=== PATIENT | female | born 1985 | race Caucasian/White ===

== ENCOUNTER → 2017-03-14 | Day surgery (SDC) | payer OTHER ==
[2017-03-09 09:23] VITALS: BMI 47.0
[~2017-03-14] MED LIST: BUPIVACAINE HCL/PF 2.5 MG/ML - 30 ML VIAL IJ ONE; DEXAMETHASONE SOD PHOSPHATE 4 MG/1 ML VIAL ONE; HYDROmorphone HCL CARPU-JECT 2 MG/1 ML DISP.SYRIN ONE; LACTATED RINGERS SOLUTION 1,000 ML IV SCH; LIDOCAINE HCL 1%, 10 MG/ML (20ML VIAL) ONE; METHYLENE BLUE 1% 10 MG/1 ML VIAL ONE; MIDAZOLAM HCL 2 MG/2 ML SINGLE DOSE VIAL ONE; ONDANSETRON 4 MG/2 ML VIAL IVPUSH PRN; ONDANSETRON 4 MG/2 ML VIAL ONE; PROMETHAZINE HCL 25 MG/1 ML VIAL IVPUSH PRN; PROPOFOL 20 ML ONE; SUCCINYLCHOLINE CHLORIDE 200 MG/10 ML VIAL ONE; ceFAZolin SODIUM 1 GM VIAL ONE; oxyCODONE HCL 5 MG TABLET ONE; oxyCODONE HCL 5 MG TABLET PO PRN
[2017-03-14] MEDS: HYDROmorphone HCL CARPU-JECT 1 MG/1 ML DISP.SYRIN IVPUSH PRN ×3 (13:10→13:30)
[2017-03-14 17:39] VITALS: TEMP 98.2
[2017-03-14 17:56] VITALS: BP 147/80; PULSE 95
--- NOTE | 2017-03-14 23:57 | OP ---
DATE OF OPERATION: 03/14/2017 PREOPERATIVE DIAGNOSIS: Abnormal right breast ultrasound, right nipple discharge. POSTOPERATIVE DIAGNOSIS: Abnormal right breast ultrasound, right nipple discharge. PROCEDURE: Right nipple duct exploration and excision of nipple duct, right breast ultrasound guided wire localizing incision. SURGEON: Judy Nesbitt M.D. ANESTHESIA: General. ESTIMATED BLOOD LOSS: Minimal. COMPLICATIONS: None. This is a sterile procedure. INDICATION FOR PROCEDURE: Patient had presented with spontaneous right milky nipple discharge from the 10 o'clock duct. This was found right after patient had excision of the duct. Also noted on ultrasound was a nodule on the 9 o'clock location 4 cm from the nipple, and since I was there to operate on the duct, we decided to go ahead and excise this nodule as well. The procedure was discussed with all the questions answered. PROCEDURE IN DETAIL: Patient was brought to [facility], taken to breast imaging. Ultrasound guided wire localization was performed by the radiologist with a 9 o'clock nodule 4 cm from the nipple. She was then brought into the operating room and after induction of general anesthesia and IV antibiotics, the right breast was prepped and draped in the usual sterile fashion. The duct with the discharge was noted at the 10 o'clock location and I dilated the duct with lacrimal duct probes up to a number 2 dilator. Then 0.1 mL of methylene blue dye was injected into the duct with a 20-gauge Angiocath. A areolar incision was made in the outer part of the right breast and then the blue dye in the duct was followed up to the nipple. This was completely, the nipple duct system that was excised and tagged with a stitch at the nipple edge, nipple end of duct, and this was sent to pathology for permanent resection. Next the focus was made to the wire localization excision. The wire was used as a guide to get down to the area which was excised en bloc and sent as a right breast mass excision 9 o'clock together with the wire intact within this. This was sent to pathology for permanent section. Hemostasis was assured with electrocautery. The parenchyma approximated with interrupted 2-0 Vicryl, skin approximated with interrupted 3-0 Vicryl running 4-0 Prolene and a sterile dressing with Tegaderm, 4x4s applied. She tolerated procedure well, was taken to recovery in good condition. Tori ORTIZ/[id number]
--- NOTE | 2017-03-20 16:13 | PATH ---
Surgical Pathology Report Patient Name: MARCELLA FLORIAN [facility]. Rec. #: [id number] /Age/Gender: 1985 (Age: 31) / F Account: [id number] Location: [facility] AMBULATORY Taken: 03/14/2017 Received: 03/14/2017 Reported: 03/20/2017 Physicians: Judy Nesbitt M.D. Specimen(s) Received A: RIGHT BREAST NIPPLE DUCT EXCISION B: RIGHT BREAST EXCISION OF MASS 9:00 Clinical History Right breast mass Final Diagnosis A. BREAST, RIGHT, NIPPLE DUCT, EXCISION: BENIGN BREAST TISSUE SHOWING ECTATIC DUCTS WITH PERIDUCTAL CHRONIC INFLAMMATION AND FIBROSIS. REMAINING BREAST TISSUE SHOWS PROLIFERATIVE FIBROCYSTIC CHANGES INCLUDING CYSTIC APOCRINE METAPLASIA AND USUAL DUCTAL HYPERPLASIA (UDH). B. BREAST, RIGHT, MASS, 9:00, EXCISION: BENIGN BREAST TISSUE SHOWING FIBROADENOMA. REMAINING BREAST TISSUE SHOWS PROLIFERATIVE FIBROCYSTIC CHANGES INCLUDING CYSTIC APOCRINE METAPLASIA AND USUAL DUCTAL HYPERPLASIA (UDH). Electronically Signed Maryuri Valdes M.D. Gross Description A. Received in formalin labeled "right breast nipple duct excision," is a 6.0 x 2.5 x 2.2 cm irregular portion of fibroadipose tissue with a suture marking the nipple end of the duct, per the surgeon. There is no needle localization wire present. There is no skin present. The nipple end of the duct is inked red and the remainder of the specimen is inked black. The specimen is serially sectioned from nipple end to deep. Sectioning reveals diffuse dilated ducts. No definitive masses are identified. The specimen is entirely and sequentially submitted in 15 cassettes with the nipple end in cassette 1 and the deep in cassette 15. B. Received in formalin labeled "right breast excision of mass at 9:00," is a 4.8 x 3.3 x 2.8 cm irregular, unoriented portion of fibroadipose tissue with a needle localization wire present. There is no skin present. The specimen is inked black and serially sectioned. Sectioning reveals a 0.9 x 0.7 x 0.6 cm firm focus of fibrous tissue abutting the radial margin. The remaining breast parenchyma displays foci of white fibrous tissue. Brim Pouncing Machine Operator sections are submitted in 7 cassettes as follows: 1-2-nodule; 9-4-yfhmdhkgby career representative fibrous tissue. Time to formalin fixation: 1 minute Total formalin fixation time: Approximately 30 hours. 03/15/2017 [facility]03/15/2017
== END | disposition home or self-care (01) ==
LOC: FASU 07:50
PROVIDERS: ATTEND Surgery
PROC: 0HBT0ZX Excision of Right Breast, Open Approach, Diagnostic (ICD-10-PCS; principal; 2017-03-14 12:12)
DX: N64.52 Nipple discharge (principal); R92.8 Other abnormal and inconclusive findings on diagnostic imaging of breast; N60.11 Diffuse cystic mastopathy of right breast; N60.81 Other benign mammary dysplasias of right breast; D24.2 Benign neoplasm of left breast
CPT/HCPCS: 19281; 84703; 88307-TC; 94760

== ENCOUNTER 2017-04-30 18:10 | Emergency (ER) | payer OTHER ==
[2017-04-30 18:32] VITALS: PULSE 97; BMI 47.0
[2017-04-30] MEDS ORDERED: ONDANSETRON 4 MG/2 ML VIAL IVPUSH ONE (18:54)
[2017-04-30] MEDS ORDERED: SODIUM CHLORIDE 0.9% 1000 ML INFUS.BAG IV ONE (18:54)
[2017-04-30] MEDS ORDERED: HEMOQUE TEST 1 EACH EACH ONE (18:59)
--- NOTE | 2017-04-30 19:00 | PDOC ---
Attending Attestation - Resident Resident Name: WestonyoselynAdarsh - ED Attending Attestation I have performed the following: I have examined & evaluated the patient, The case was reviewed & discussed with the resident, I agree w/resident's findings & plan, Exceptions are as noted - HPI HPI: 04/30/17 18:58 Agree with the resident's HPI as documented in the electronic medical record. - Physicial Exam PE: 04/30/17 18:58 Agree with the resident's physical examination as documented in the electronic medical record. - Medical Decision Making 04/30/17 18:58 31-year-old female with history of hypertension, diabetes who presents to the emergency Department with complaints of 4 day history of copious diarrhea and one day history of nausea and vomiting as well as abdominal pain mostly in the right lower quadrant. Differential diagnosis includes but is not limited to: Appendicitis, gastroenteritis, regional enteritis, colitis, diverticulitis/ diverticulosis, partial bowel obstruction, DKA, electrolyte abnormality, dehydration, toxic/metabolic derangement. Plan: 1. Labs 2. IV fluids for hydration 3. Urine analysis and urine 4. Antiemetics 5. Pain management 6. Observe and reevaluate 7. The patient will likely require abdominal imaging to rule out above- mentioned pathology
--- NOTE | 2017-04-30 19:02 | PDOC ---
History of Present Illness - General Chief Complaint: Vomiting/Diarrhea Stated Complaint: VOMITING, DIARRHEA Time Seen by Provider: 04/30/17 18:25 History Source: Patient Exam Limitations: No Limitations - History of Present Illness Initial Comments: 04/30/17 18:56 The patient is a 31F with a PMH of HTN and DM who presents to the Ed with 6 days of diarrhea. The patient has also been experiencing NBNB vomiting x 3 days. The diarrhea is mucous and watery. The vomitus is non bloody and non bilious. The patient states that she cannot keep anything down and is feeling spasms and pain in her abdomen. The patient also reports a fever of 101 yesterday and today. She denies any recent antibiotic use or recent travel. She does not have any sick contacts and no one in her household is experiencing similar symptoms. The patient's last meal was at 2:30pm today and she threw it up. ROS+: nausea, vomiting, diarrhea, fever, chills, headache ROS-: constipation, numbness, tingling, CP, SOB Allergies: ASA, azithro, cipro, diclofenac, fluconazole, guaifenesin Surgeries: breast surgery 1 month ago, cholecystecomy Social: Does not smoke, drink, or use recreational drugs Past History - Past Medical History Allergies/Adverse Reactions: Allergies Allergy/AdvReac Type Severity Reaction Status Date / Time aspirin Allergy Verified 04/30/17 18:13 azithromycin Allergy Rash Verified 04/30/17 18:13 ciprofloxacin [From Cipro] Allergy Vomiting Verified 04/30/17 18:13 diclofenac Allergy Verified 04/30/17 18:13 fluconazole [From Diflucan] Allergy Itching Verified 04/30/17 18:13 guaifenesin Allergy Rash Verified 04/30/17 18:13 Home Medications: Ambulatory Orders Botulinum Toxin A [Botox (Nf)] 100 units IM ASDIR 03/14/17 Medroxyprogesterone Acetate [Depo-Provera] 150 mg IM MONTHLY 03/14/17 Anemia: No Asthma: No Cancer: No Cardiac Disorders: No CVA: No COPD: No CHF: No Dementia: No Diabetes: Yes GI Disorders: No Disorders: No HTN: Yes Hypercholesterolemia: No Liver Disease: No Seizures: No Thyroid Disease: No Other medical history: MIGRAINE HEADACHES - Surgical History Abdominal Surgery: Yes (Exploratory Lap 2003) Appendectomy: No Cardiac Surgery: No Cholecystectomy: Yes Lung Surgery: No Neurologic Surgery: No Orthopedic Surgery: No - Psycho/Social/Smoking Cessation Hx Anxiety: No Suicidal Ideation: No Smoking History: Never smoked Have you smoked in the past 12 months: No Information on smoking cessation initiated: No Hx Alcohol Use: (occasional) Drug/Substance Use Hx: No Substance Use Type: None Hx Substance Use Treatment: No Review of Systems - Review of Systems Able to Perform ROS?: Yes Is the patient limited [place] proficient: No Constitutional: Yes: Chills, Fever Respiratory: No: Shortness of Breath Cardiac (ROS): No: Chest Pain ABD/GI: Yes: Diarrhea, Nausea, Poor Appetite, Vomiting. No: Constipated : No: Burning, Dysuria, Discharge Neurological: Yes: Headache. No: Numbness, Paresthesia, Tingling, Weakness *Physical Exam - Vital Signs Last Vital Signs Temp Pulse Resp BP Pulse Ox 97.9 F 97 H 18 157/105 99 04/30/17 18:10 04/30/17 18:10 04/30/17 18:10 04/30/17 18:10 04/30/17 18:10 - Physical Exam General Appearance: Yes: Nourished, Appropriately Dressed, Mild Distress, Obese HEENT: positive: Normal Voice Respiratory/Chest: positive: Lungs Clear, Normal Breath Sounds. negative: Chest Tender, Respiratory Distress, Accessory Muscle Use Cardiovascular: positive: Regular Rhythm, Regular Rate, S1, S2, Tachycardia ( borderline) Gastrointestinal/Abdominal: positive: Tender (RLQ to deep palpation), Soft. negative: Protuberent, Guarding, Rebound Musculoskeletal: positive: CVA Tenderness (R) Extremity: negative: Coldness, Swelling Integumentary: positive: Dry, Warm. negative: Jaundice Neurologic: positive: Fully Oriented, Alert, Normal Mood/Affect, Normal Response , Motor Strength 5/5 ED Treatment Course - LABORATORY CBC & Chemistry Diagram: 04/30/17 19:00 04/30/17 19:00 Medical Decision Making - Medical Decision Making 04/30/17 19:04 Patient is a 31F with a PMH of DM and HTN who presents to the ED with 6 days of diarrhea and vomiting with RLQ pain. On the differential is appendicitis, colitis, diverticulitis, ectopic , ovarian torsion, renal calculus. I have ordered a CBC, CMP, UA, stool cultures to r/o infectious process. Imaging was discussed with Dr. Mtz and she would like an abdominal CT to rule out intraabdominal pathology. 04/30/17 19:19 The patient was signed out to evening attending pending all labs and imaging ordered. *DC/Admit/Observation/Transfer - Discharge Dispostion Condition at time of disposition: Stable
--- NOTE | 2017-04-30 19:16 | PDOC ---
*Physical Exam - Vital Signs Last Vital Signs Temp Pulse Resp BP Pulse Ox 97.9 F 97 H 18 157/105 99 04/30/17 18:10 04/30/17 18:10 04/30/17 18:10 04/30/17 18:10 04/30/17 18:10 ED Treatment Course - LABORATORY CBC & Chemistry Diagram: 04/30/17 19:00 04/30/17 19:00 Progress Note - Progress Note Progress Note: Care of this patient was transferred to [place] from Dr. Mtz and the resident. Patient is an obese 31-year-old who comes in complaining of multiple episodes of nausea vomiting and diarrhea. On exam patient has right lower quadrant pain. Patient's workup is still pending. Patient has labs pending and a CAT scan pending. Patient was given antiemetics and is being hydrated with IV fluid. Patient's CAT scan was negative for any acute intra-abdominal pathology. Patient did have an incidental finding of a small nodule on her adrenal gland and a fatty liver. Patient's blood work showed a normal white count, normal H&H and normal differential Patient had a mildly elevated glucose of 136 otherwise her chemistries were unremarkable Patient's test was negative and her urinalysis was normal. Patient given copies of her CAT scan and discussed the results with her. Prescriptions were sent to patient's pharmacy for some hyoscyamine as well as an anti-medic Patient was also told to picker tender an antidiarrheal and take as directed on the bottle Patient has a primary care doctor that she can follow-up with Patient discharged home. *DC/Admit/Observation/Transfer Diagnosis at time of Disposition: Nausea, vomiting, and diarrhea, Abdominal pain - Discharge Dispostion Disposition: HOME Condition at time of disposition: Stable - Prescriptions Prescriptions: Hyoscyamine Odt [Levsin Odt -] 0.125 mg PO DAILY #7 tab.rapdis Ondansetron [Zofran Odt -] 4 mg SL BID #14 od.tablet - Patient Instructions Additional Instructions: Take hyoscyamine for abdominal pain one tablet as often as twice a day. For nausea and vomiting take Zofran 1 tablet as often as 3 times a day. Purchase some [id number] Imodium and take as directed on the bottle. Return to the emergency department immediately with ANY new, persistent or worsening symptoms. Continue any medications as previously prescribed by your physician. You should follow up with your primary doctor as soon as possible regarding today's emergency department visit. . Please make sure your doctor reviews the results of your emergency evaluation. Thank you for coming to the Emergency Department today for your care. It was a pleasure to see you today. Please note that your evaluation is INCOMPLETE until you follow-up with your doctor.
[2017-04-30 19:19] LABS: URINE APPEARANCE Clear; URINE BILIRUBIN Negative (NEGATIVE); URINE BLOOD Trace-intact (NEGATIVE); URINE GLUCOSE (UA) Negative (NEGATIVE); URINE KETONE Negative (NEGATIVE); URINE LEUK ESTERASE Negative (NEGATIVE); URINE NITRITE Negative (NEGATIVE); URINE PROTEIN Trace (NEGATIVE); URINE UROBILINOGEN 0.2 E.U/dl (0.2-1.0)
[2017-04-30 19:20] LABS: URINE COLOR YELLOW
[2017-04-30] MEDS ORDERED: ONDANSETRON 4 MG/2 ML VIAL ONE (19:21)
[2017-04-30 19:23] LABS: MCH 31.1 pg (25.7-33.7); MCHC 33.9 g/dl (32.0-36.0); MEAN CELL VOLUME 91.7 fl (80-96); MEAN PLT VOLUME 8.4 fl (7.5-11.1); PLATELET COUNT 243 K/MM3 (134-434); RDW 12.7 % (11.6-15.6); WHITE BLOOD COUNT 9.6 K/mm3 (4.0-10.8)
[2017-04-30 19:26] LABS: STOOL FOR OCCULT BLOOD NEGATIVE (NEGATIVE)
[2017-04-30 19:36] VITALS: TEMP 99
[2017-04-30 19:36] LABS: ALK PHOS 158 U/L (32-92); ANION GAP 5 (8-16); BILIRUBIN,TOTAL 0.8 mg/dl (0.2-1.0); CALCIUM 8.9 mg/dl (8.4-10.2); CO2 26 mmol/L (22-28); CREATININE 0.7 mg/dl (0.6-1.3); GLUCOSE,RANDOM 135 mg/dl (74-106); SGOT/AST 30 U/L (10-42); SGPT/ALT 34 U/L (10-40); TOT PROT 7.4 g/dl (6.4-8.3)
[2017-04-30 19:37] LABS: ACETONE SERUM NEGATIVE (NEGATIVE)
[2017-04-30] MEDS ORDERED: morphine CARPU-JECT 4 MG/1 ML DISP.SYRIN ONE (20:51)
[2017-04-30] MEDS ORDERED: morphine CARPU-JECT 4 MG/1 ML DISP.SYRIN IVPUSH ONE (20:51)
[2017-04-30] MEDS ORDERED: HYOSCYAMINE SULFATE 0.125 MG *ODT PO ONE (21:41)
[2017-04-30] MEDS ORDERED: HYOSCYAMINE SULFATE 0.125 MG *ODT ONE (21:50)
[2017-04-30 22:08] VITALS: BP 152/101
== END 2017-04-30 22:07 | disposition home or self-care (01) ==
LOC: FER 18:10
PROC: 3E033NZ Introduction of Analgesics, Hypnotics, Sedatives into Peripheral Vein, Percutaneous Approach (ICD-10-PCS; principal; 2017-04-30)
PROC: 3E033GC Introduction of Other Therapeutic Substance into Peripheral Vein, Percutaneous Approach (ICD-10-PCS; 2017-04-30)
DX: R10.9 Unspecified abdominal pain (principal); R11.2 Nausea with vomiting, unspecified; R19.7 Diarrhea, unspecified
CPT/HCPCS: 36415; 74177-TC; 80053; 81003; 82009; 82272; 84703; 85027; 96374; 96375; 99282-25

== ENCOUNTER 2017-12-03 10:05 | Emergency (ER) | payer SELFPAY ==
[2017-12-03 10:30] VITALS: TEMP 98.6; BMI 45.4
[2017-12-03 10:51] VITALS: BP 155/105; PULSE 120
[2017-12-03] MEDS ORDERED: ONDANSETRON 4 MG/2 ML VIAL IVPUSH ONE (10:52)
[2017-12-03] MEDS ORDERED: ACETAMINOPHEN 1000 MG/100 ML VIAL (NON FORMULARY) IVPB ONE (10:52)
[2017-12-03] MEDS ORDERED: ALBUTEROL SO4 2.5/IPRATROPIUM 0.5 INH SOL 3 ML VIAL.NEB. NEB ONE ×2 (10:52→10:56)
[2017-12-03] MEDS ORDERED: SODIUM CHLORIDE 0.9% 1000 ML INFUS.BAG IV ONE (10:52)
[2017-12-03] MEDS ORDERED: ONDANSETRON 4 MG/2 ML VIAL ONE (10:56)
[2017-12-03] MEDS ORDERED: ACETAMINOPHEN INJECTION 100 ML IVPB ONE (10:56)
[2017-12-03 11:24] LABS: BASO % 0.2 % (0-2.0); EOS % 1.6 % (0-4.5); HEMATOCRIT 48.7 % (32.4-45.2); LYMPH % 35.5 % (8-40); MCHC 34.9 g/dl (32.0-36.0); MEAN CELL VOLUME 88.6 fl (80-96); MEAN PLT VOLUME 8.3 fl (7.5-11.1); MONO % 10.8 % (3.8-10.2); NEUT % 51.9 % (42.8-82.8); PLATELET COUNT 232 K/MM3 (134-434); RBC 5.49 M/mm3 (3.60-5.2); RDW 12.4 % (11.6-15.6); WHITE BLOOD COUNT 5.4 K/mm3 (4.0-10.8)
[2017-12-03 11:37] LABS: ALBUMIN 3.9 g/dl (3.5-5.0); ALK PHOS 193 U/L (32-92); ANION GAP 12 (8-16); BILIRUBIN,TOTAL 1.7 mg/dl (0.2-1.0); BLOOD UREA NITROGEN 11 mg/dl (7-18); CALCIUM 9.3 mg/dl (8.4-10.2); CHLORIDE 103 mmol/L (98-107); CO2 18 mmol/L (22-28); GLUCOSE,RANDOM 257 mg/dl (74-106); POTASSIUM 3.6 mmol/L (3.5-5.1); SGOT/AST 85 U/L (10-42); SGPT/ALT 52 U/L (10-40); SODIUM 133 mmol/L (136-145); TOT PROT 7.9 g/dl (6.4-8.3)
--- NOTE | 2017-12-03 11:39 | PDOC ---
History of Present Illness - General Chief Complaint: Cold Symptoms Stated Complaint: FLU Time Seen by Provider: 12/03/17 10:47 - History of Present Illness Initial Comments: 12/03/17 15:26 Chief complaint cough difficulty breathing History of present illness: 32 years old no significant past medical history presents to the emergency department with 3-4 day history of runny nose congestion cough chills body aches. Today she developed difficulty breathing coughing wheezing pharyngitis. Has been able to tolerate food of fluids. Symptoms are mild to moderate persistent constant no exacerbating or alleviating factors. Denies pain. Past History - Travel Traveled outside of the country in the last 30 days: No Close contact w/someone who was outside of country & ill: No - Past Medical History Allergies/Adverse Reactions: Allergies Allergy/AdvReac Type Severity Reaction Status Date / Time aspirin Allergy Verified 04/30/17 18:13 azithromycin Allergy Rash Verified 04/30/17 18:13 ciprofloxacin [From Cipro] Allergy Vomiting Verified 04/30/17 18:13 ciprofloxacin HCl Allergy Rash Verified 02/13/17 15:37 [From Cipro] fluconazole [From Diflucan] Allergy Itching Verified 04/30/17 18:13 guaifenesin Allergy Rash Verified 04/30/17 18:13 Home Medications: Ambulatory Orders Botulinum Toxin A [Botox (Nf)] 100 units IM ASDIR 03/14/17 Medroxyprogesterone Acetate [Depo-Provera] 150 mg IM MONTHLY 03/14/17 Hyoscyamine Odt [Levsin Odt -] 0.125 mg PO DAILY #7 tab.rapdis 04/30/17 Ondansetron [Zofran Odt -] 4 mg SL BID #14 od.tablet 04/30/17 Albuterol Sulfate Inhaler - [Ventolin Hfa Inhaler -] 1 - 2 inh PO Q4H #1 inhaler 12/03/17 Ondansetron [Zofran Odt -] 4 mg SL BID #14 od.tablet 12/03/17 COPD: No HTN: Yes - Surgical History Cholecystectomy: Yes - Suicide/Smoking/Psychosocial Hx Smoking History: Never smoked Hx Alcohol Use: No Drug/Substance Use Hx: No Substance Use Type: None Review of Systems - Review of Systems Comments:: 12/03/17 15:27 ROS: A complete review of 10 out of 10 review of systems is taken and is negative apart from what is previously mentioned below and in the HPI. *Physical Exam - Vital Signs Last Vital Signs Temp Pulse Resp BP Pulse Ox 98.6 F 120 H 26 H 155/105 100 12/03/17 10:06 12/03/17 10:50 12/03/17 10:50 12/03/17 10:50 12/03/17 10:50 - Physical Exam Comments: 12/03/17 15:27 Vitals: Triage Vital signs reviewed General Appearance: no acute distress, well nourished well developed, Head: Atraumatic, Eyes: Pupils equal reactive round, extraocular movement intact Ears: TM's normal bilaterally; Nose: Nares patent bilaterally;+ nasal congestion Throat: Posterior oropharynx without erythema, mucous membranes moist, Neck: Supple;No Nucal rigidity Chest Wall: Nontender Cardiac: Regular rate and rhythym, no murmurs, no rubs, no gallops, Lungs: Clear to auscultation bilateral, b/l end expiratory wheezing Abdomen: Soft, non distended, normal bowel sounds, non tender to palpation Extremities: Full range of motion to all extremities, no cyanosis, clubbing, or edema Skin: Warm and dry, no rashes or lesions, no rash, no petechiae Neuro: AOX3; Cranial Nerves 2-12 grossly intact, Strength intact to all extremities, Sensation intact to all extremities,gait normal Psych: normal mood, normal affect ED Treatment Course - LABORATORY CBC & Chemistry Diagram: 12/03/17 11:05 12/03/17 11:05 - Medications Given in the ED: ED Medications Discontinued Medications Generic Name Dose Route Start Last Admin Trade Name Km PRN Reason Stop Dose Admin Acetaminophen 1,000 mg 12/03/17 10:52 12/03/17 11:19 Ofirmev Injection - IVPB 12/03/17 10:53 1,000 mg ONCE ONE Administration Albuterol/Ipratropium 3 amp 12/03/17 10:52 12/03/17 11:00 Duoneb - NEB 12/03/17 10:53 3 amp ONCE ONE Administration Ondansetron HCl 4 mg 12/03/17 10:52 12/03/17 11:05 Zofran Injection IVPUSH 12/03/17 10:53 4 mg ONCE ONE Administration Sodium Chloride 2,000 ml 12/03/17 10:52 12/03/17 11:05 Normal Saline - IV 12/03/17 10:53 2,000 ml ONCE ONE Administration Medical Decision Making - Medical Decision Making 12/03/17 15:28 History and examination consistent with influenza-like illness. Patient with wheezing on examination. We'll check labs treat with IV fluids Zofran given some nausea 3 DuoNeb's and reassess Reevaluation: Patient feels much better no difficulty breathing wheezing has improved. History and examination consistent with influenza-like illness. On patient's blood work her liver function tests were slightly elevated. I discussed this with the patient at this time given no abdominal pain and otherwise a history and examination that is consistent with flulike illness I believe these elevations to be viral and transient. I provided the patient with outpatient clinic follow-up as well as to primary care doctors that she can follow up with. She was instructed to return to the emergency department immediately for any abdominal pain severe worsening symptoms or for any concerns. Otherwise she will be discharged with a prescription for a MDI, Zofran and strict return instructions Findings, the need for follow-up, strict return instructions discussed with patient. *DC/Admit/Observation/Transfer Diagnosis at time of Disposition: Influenza - Discharge Dispostion Condition at time of disposition: Good Admit: No - Prescriptions Prescriptions: Albuterol Sulfate Inhaler - [Ventolin Hfa Inhaler -] 1 - 2 inh PO Q4H #1 inhaler Ondansetron [Zofran Odt -] 4 mg SL BID #14 od.tablet - Referrals Referrals: Derek Farris MD [Staff Physician] - Lion Mora MD [Staff Physician] - Logan Galloway MD [Staff Physician] - - Patient Instructions Printed Discharge Instructions: Influenza Additional Instructions: Ventolin MDI as prescribed 2 puffs every 4 hours for the next 3 days. Drink plenty fluids. [id number] Motrin as directed on package as needed for fever or body aches. Zofran as prescribed for nausea. Follow-up within 1 week at the residence clinic with Dr. SWANN, or you can follow-up with or Dr. Mora this week to have you liver function tests rechecked. Return to the emergency department immediately if you feel you are getting sick or difficulty breathing difficulty swallowing or for any concerns. - Post Discharge Activity Forms/Work/School Notes: Back to Work
== END 2017-12-03 15:41 | disposition home or self-care (01) ==
LOC: FER 10:05 → MERGE 10:05 → FER 15:41
PROC: 3E0337Z Introduction of Electrolytic and Water Balance Substance into Peripheral Vein, Percutaneous Approach (ICD-10-PCS; principal; 2017-12-03)
PROC: 3E033NZ Introduction of Analgesics, Hypnotics, Sedatives into Peripheral Vein, Percutaneous Approach (ICD-10-PCS; 2017-12-03)
PROC: 3E033GC Introduction of Other Therapeutic Substance into Peripheral Vein, Percutaneous Approach (ICD-10-PCS; 2017-12-03)
DX: J11.1 Influenza due to unidentified influenza virus with other respiratory manifestations (principal)
CPT/HCPCS: 36415; 71045-TC-FY; 80053; 84703; 85025; 99282-25

== ENCOUNTER 2018-02-11 09:48 | Emergency (ER) | payer OTHER ==
--- NOTE | 2018-02-11 09:53 | PDOC ---
History of Present Illness - General Chief Complaint: Injury Stated Complaint: LEFT 1ST TOE PAIN Time Seen by Provider: 02/11/18 09:51 - History of Present Illness Initial Comments: 02/11/18 10:01 32yo female with no significant pmhx (htn and dm - resolved) presents for eval of L foot pain. States she was "messing around" with her signif other on sunday night. States she was trying to kick him and hit her L big toe and heard a crack. States she has had a lot of pain across the top of her foot from the tip of her L big toe to her ankle. States anterior chow pain from holding the toes up when she walks. Pain with walking. Last ibuprofen use was last night at 11p. On depo provera shot, but last shot was in the summer of last year. Had a test a month ago (which was negative). Denies ankle injury. Denies knee injury. Denies any other injury. C/o pain to L big toe with bruising to the L toe. PMHx: htn, dm - resolved PSHx: benedict, breast lumpectomy x 2, tonsillectomy Allergies: asa, azithro, cipro, fluconazole, guifenesin Past History - Past Medical History Allergies/Adverse Reactions: Allergies Allergy/AdvReac Type Severity Reaction Status Date / Time aspirin Allergy Verified 04/30/17 18:13 azithromycin Allergy Rash Verified 04/30/17 18:13 ciprofloxacin [From Cipro] Allergy Vomiting Verified 04/30/17 18:13 ciprofloxacin HCl Allergy Rash Verified 02/13/17 15:37 [From Cipro] fluconazole [From Diflucan] Allergy Itching Verified 04/30/17 18:13 guaifenesin Allergy Rash Verified 04/30/17 18:13 Home Medications: Ambulatory Orders Botulinum Toxin A [Botox (Nf)] 100 units IM ASDIR 03/14/17 Medroxyprogesterone Acetate [Depo-Provera] 150 mg IM MONTHLY 03/14/17 Acetaminophen W/ Codeine #3 [Tylenol # 3 -] 1 tab PO Q6H #16 tablet MDD 4 tabs a day 02/11/18 Anemia: No Asthma: No Cancer: No Cardiac Disorders: No CVA: No COPD: No CHF: No Dementia: No Diabetes: No GI Disorders: No Disorders: No HTN: Yes Hypercholesterolemia: No Liver Disease: No Seizures: No Thyroid Disease: No - Surgical History Abdominal Surgery: Yes (RLQ laproscopic exploratory) Appendectomy: No Cardiac Surgery: No Cholecystectomy: Yes Lung Surgery: No Neurologic Surgery: No Orthopedic Surgery: No - Suicide/Smoking/Psychosocial Hx Smoking Status: No Smoking History: Never smoked Have you smoked in the past 12 months: No Number of Cigarettes Smoked Daily: 0 Hx Alcohol Use: No Drug/Substance Use Hx: No Substance Use Type: None Hx Substance Use Treatment: No Review of Systems - Review of Systems Able to Perform ROS?: Yes Is the patient limited Ugandan proficient: No Constitutional: No: Chills, Fever HEENTM: No: Nose Pain, Throat Pain Respiratory: No: Cough, Shortness of Breath Cardiac (ROS): No: Chest Pain, Edema, Irregular Heart Rate ABD/GI: No: Diarrhea, Nausea, Vomiting, Abdominal cramping : No: Burning Musculoskeletal: Yes: Joint Pain, Muscle Pain. No: Back Pain Integumentary: Yes: Bruising. No: Rash Neurological: No: Headache, Numbness, Paresthesia, Tingling, Ataxia, Dizziness All Other Systems: Reviewed and Negative *Physical Exam - Vital Signs 02/11/18 10:07 Selected Entries 02/11/18 09:49 Temperature 97.8 F Pulse Rate 90 Respiratory 16 Rate Blood Pressure 150/95 Blood Pressure 113 Mean O2 Sat by Pulse 99 Oximetry (%) Weight 131.5 kg - Physical Exam General Appearance: Yes: Nourished, Appropriately Dressed, Other (appears uncomfortable) HEENT: positive: EOMI, Normal Voice Neck: positive: Trachea midline Respiratory/Chest: positive: Lungs Clear, Normal Breath Sounds. negative: Respiratory Distress Cardiovascular: positive: Regular Rhythm, Regular Rate, S1, S2 Gastrointestinal/Abdominal: positive: Normal Bowel Sounds, Other (obese). negative: Guarding, Rebound Musculoskeletal: positive: Normal Inspection Extremity: positive: Normal Capillary Refill, Inflammation, Other (L great toe swelling, ecchymosis, ttp. ttp over 1st metatarsal and medial malleolus, limited ROM of toes secondary to pain). negative: Calf Tenderness Integumentary: positive: Dry, Warm, Ecchymosis (L big toe) Neurologic: positive: interpretive program coordinator II-XII NML intact, Fully Oriented, Alert, Normal Response, Motor Strength 5/5 Procedures - Splinting Splint Location: Left: Foot (tee tape to toe) Pre-Proc Neuro Vasc Exam: normal Hand-Made Type: tee tape to toe Post-Proc Neuro Vasc Exam: normal Progress: 02/11/18 11:25 pt tolerated the procedure well Medical Decision Making - Medical Decision Making 02/11/18 10:09 a/p: 32yo female with L foot trauma - suspect great phalange vs metatarsal fx -will obtain xrays of foot and ankle given pain to medial malleolus, however, low suspicion for ankle fracture given the mechanism of injury and that the patient has been ambulating on the foot x 2 days -motrin -hcg -will monitor and reassess -suspect patient will need tee tape and a hard sole shoe for a toe fracture. pain control, ice, elevate, ortho follow up 02/11/18 11:20 xray reviewed suspect fracture to prox phalange of first toe will tee tape, pain control, ortho follow up, hard sole shoe, crutches stable for d/c to home discussed follow up with PMD and ortho. answered all questions and all reasons to return to the ED *DC/Admit/Observation/Transfer Diagnosis at time of Disposition: Broken toe - Discharge Dispostion Disposition: HOME Condition at time of disposition: Stable Admit: No - Prescriptions Prescriptions: Acetaminophen W/ Codeine #3 [Tylenol # 3 -] 1 tab PO Q6H #16 tablet MDD 4 tabs a day - Referrals Referrals: Slade Swan MD [Staff Physician] - - Patient Instructions Printed Discharge Instructions: DI for Toe Fracture, How to Use Crutches Additional Instructions: Please take all medications as prescribed. Please do not drive or operate heavy machinery while taking Tylenol #3. Please make an appointment to see the orthopedist. Please wear the hard sole shoe whenever you are walking. - Post Discharge Activity - Attestations Physician Attestion: 02/11/18 11:25 I, Dr. Cecilia Hill, DO, attest that this document has been prepared under my direction and personally reviewed by me in its entirety. I further attest, that it accurately reflects all work, treatment, procedures and medical decision -making performed by me.
[2018-02-11] MEDS ORDERED: IBUPROFEN 600 MG TABLET (FP) PO ONE ×2 (10:00→10:35)
[2018-02-11 10:04] VITALS: BP 150/95; PULSE 90; TEMP 97.8; BMI 45.3
[2018-02-11] MEDS ORDERED: ACETAMINOPHEN WITH CODEINE 300MG/30MG TABLET PO ONE (11:00)
[2018-02-11] MEDS ORDERED: ACETAMINOPHEN WITH CODEINE 300MG/30MG TABLET ONE (11:15)
== END 2018-02-11 11:32 | disposition home or self-care (01) ==
LOC: FER 09:48
PROC: 2W3VXYZ Immobilization of Left Toe using Other Device (ICD-10-PCS; principal; 2018-02-11)
DX: S92.415A Nondisplaced fracture of proximal phalanx of left great toe, initial encounter for closed fracture (principal); W51.XXXA Accidental striking against or bumped into by another person, initial encounter; Y93.89 Activity, other specified; Y92.9 Unspecified place or not applicable; I10 Essential (primary) hypertension
CPT/HCPCS: 73610-TC-LT-FY; 73630-TC-LT; 84703; 99282-25

== ENCOUNTER 2018-07-04 16:18 | Emergency (ER) | payer OTHER ==
[2018-07-04] MEDS ORDERED: methylPREDNISolone NA SUCC 125 MG/2 ML VIAL IVPB ONE (16:24)
[2018-07-04] MEDS ORDERED: SODIUM CHLORIDE 0.9% 500 ML INFUS.BAG IV ONE (16:26)
[2018-07-04] MEDS ORDERED: methylPREDNISolone NA SUCC 125 MG/2 ML VIAL ONE (16:26)
[2018-07-04 16:30] VITALS: BMI 45.4
--- NOTE | 2018-07-04 16:30 | PDOC ---
History of Present Illness - General Chief Complaint: Allergic Reaction Stated Complaint: ALLERGIC REACTION Time Seen by Provider: 07/04/18 16:19 History Source: Patient Exam Limitations: No Limitations - History of Present Illness Initial Comments: 07/04/18 16:27 This is a 33 YOF with h/o multiple food and medication allergies who p/w throat itching/closing sensation, diffuse bodily itching/flushing, hot/cold sensations to her skin, nausea, vomiting x2, and diarrhea all starting at about 2 pm. She ate [employer] food (hot and sour soup and scallops) at 1:30 pm, but she has eaten these dishes at this restaurant before and it never caused her troubles. She denies f/c, headache, SOB, wheezing, chest pain, lightheadedness, dizziness, vision changes, respiratory distress, or other symptoms. She took two Benadryl at 2:03 pm after the onset of symptoms but has not gotten relief. Past History - Past Medical History Allergies/Adverse Reactions: Allergies Allergy/AdvReac Type Severity Reaction Status Date / Time aspirin Allergy Verified 07/04/18 16:19 azithromycin Allergy Rash Verified 07/04/18 16:19 ciprofloxacin [From Cipro] Allergy Vomiting Verified 07/04/18 16:19 ciprofloxacin HCl Allergy Rash Verified 07/04/18 16:19 [From Cipro] codeine [From Guaifen-C] Allergy Verified 07/04/18 16:19 fluconazole [From Diflucan] Allergy Itching Verified 07/04/18 16:19 guaifenesin Allergy Rash Verified 07/04/18 16:19 pesticide Allergy Verified 07/04/18 16:19 Home Medications: Ambulatory Orders Medroxyprogesterone Acetate [Depo-Provera] 150 mg IM MONTHLY 03/14/17 Epinephrine [Epipen 2-Willam] 0.3 mg IJ ASDIR #1 kit 07/04/18 Prednisone [Deltasone] 60 mg PO DAILY #4 tablet 07/04/18 Anemia: No Asthma: No Cancer: No Cardiac Disorders: No CVA: No COPD: No CHF: No Dementia: No Diabetes: No GI Disorders: No Disorders: No HTN: Yes Hypercholesterolemia: No Liver Disease: No Seizures: No Thyroid Disease: No - Surgical History Abdominal Surgery: Yes (RLQ laproscopic exploratory) Appendectomy: No Cardiac Surgery: No Cholecystectomy: Yes Lung Surgery: No Neurologic Surgery: No Orthopedic Surgery: No - Suicide/Smoking/Psychosocial Hx Smoking Status: No Smoking History: Never smoked Have you smoked in the past 12 months: No Number of Cigarettes Smoked Daily: 0 Hx Alcohol Use: No Drug/Substance Use Hx: No Substance Use Type: None Hx Substance Use Treatment: No Review of Systems - Review of Systems Able to Perform ROS?: Yes Constitutional: No: Chills, Fever, Unexplained wgt Loss HEENTM: Yes: Other (throat itching, throat closing sensation, hoarse voice). No : Nose Congestion Respiratory: No: Cough, Shortness of Breath, Wheezing Cardiac (ROS): No: Chest Pain, Palpitations ABD/GI: Yes: Diarrhea, Nausea, Vomiting. No: Constipated : No: Burning, Dysuria Musculoskeletal: No: Back Pain, Neck Pain Integumentary: Yes: Pruritus, Rash. No: Bruising Neurological: No: Headache, Numbness, Tingling, Weakness, Dizziness Endocrine: No: Unexplained Weight Gain, Unexplained Weight Loss *Physical Exam - Physical Exam General Appearance: Yes: Nourished, Appropriately Dressed, Obese, Other (hoarse voice but able to converse, appears slightly uncomfortable but no distress) HEENT: positive: EOMI, GREGORY, Pharynx Normal (no posterior pharyngeal or lingual edema), Muffled/Hoarse voice (slight), Hearing Grossly Normal. negative: Scleral Icterus (R), Scleral Icterus (L), Nasal Congestion Neck: positive: Trachea midline, Supple. negative: Tender, Rigid Respiratory/Chest: positive: Lungs Clear, Normal Breath Sounds. negative: Respiratory Distress, Crackles, Rhonchi, Stridor, Wheezing Cardiovascular: positive: Regular Rhythm, Regular Rate, S1, S2. negative: Edema , JVD, Murmur Gastrointestinal/Abdominal: positive: Normal Bowel Sounds, Soft. negative: Tender, Organomegaly, Pulsatile Mass, Guarding Musculoskeletal: positive: Normal Inspection. negative: Decreased Range of Motion, Vertebral Tenderness Extremity: positive: Normal Capillary Refill, Normal Inspection, Normal Range of Motion. negative: Tender, Cyanosis Integumentary: positive: Normal Color, Dry, Warm, Rash (mild lateral BUE with L> R mild urticaria with mild new excoriation presumably from scratching). negative: Erythema, Bruising Neurologic: positive: clearing hand II-XII NML intact (grossly), Fully Oriented, Alert, Normal Mood/Affect, Normal Response, Motor Strength 5/5, Other (gait is normal) . negative: Facial Droop, Numbness, Sensory Deficit, Confused, Disoriented Medical Decision Making - Medical Decision Making 07/04/18 16:25 Pt p/w apparent allergic reaction. Initial Vital Signs Temp Pulse Resp BP Pulse Ox 98.6 F 93 H 17 190/125 100 07/04/18 16:18 07/04/18 16:18 07/04/18 16:18 07/04/18 16:18 07/04/18 16:18 Exam: As noted in Physical Exam section. DDX IBNLT: allergic rxn/angioedema, anaphylaxis, contact dermatitis, STATE PATROL OFFICER, RPA, laryngitis, tracheitis, tonsillitis esophagitis, GERD, dysphagia, ACS, tracheal/ esophageal trauma, etc. W/U ordered: None TX ordered: IVF, Pepcid, Benadryl, Solu-Medrol Reassessment: Improved, no throat itching or throat/tongue swelling. States still mild bodily itching which she has had before with allergic reactions. States she is comfortable managing this at home. Vital Signs Temperature 98.4 F 07/04/18 17:15 Pulse Rate 88 07/04/18 18:25 Respiratory Rate 18 07/04/18 17:15 Blood Pressure 170/117 07/04/18 18:25 O2 Sat by Pulse Oximetry (%) 100 07/04/18 17:15 BP is acknowledged at 170/117. The patient notes this is not abnormal for her. She is counseled that she needs to continue her regular BP meds as prescribed. Also counseled she needs to follow up with PCP regarding this as well as allergic reactions. She has no OSORIO, chest pain, SOB, palpitataions, or other symptoms of HTNive secondary pathology. DISCHARGE The Pt has gotten significant relief of symptoms with ED medications. Workup is not concerning for emergency-level pathology at this time. The Pt is appropriate for discharge with close outpatient follow up. They are comfortable with this plan and will follow up with their primary care provider in 1-3 days. E-Rx sent to patient's pharmacy for EpiPen and Prednisone short course. The patient is instructed to also take Benadryl prn for any mild recurrence of symptoms. Specific return precautions are discussed and they will come back to the ER if necessary. *DC/Admit/Observation/Transfer Diagnosis at time of Disposition: Allergic reaction Qualifiers: Encounter type: initial encounter Qualified Code(s): T78.40XA - Allergy, unspecified, initial encounter - Discharge Dispostion Disposition: HOME Condition at time of disposition: Stable Decision to Admit order: No - Prescriptions Prescriptions: Epinephrine [Epipen 2-Willam] 0.3 mg IJ ASDIR #1 kit Prednisone [Deltasone] 60 mg PO DAILY #4 tablet - Referrals Referrals: [facility] [Provider Group] Sanchez Santos MD [Staff Physician] - - Patient Instructions Printed Discharge Instructions: DI for General Allergic Reactions Additional Instructions: You were seen in the ER for an allergic reaction. We did an exam and gave you IV medications to control your symptoms, which improved while you were here in the ER. After our assessment, we do not believe you are having a medical emergency at this time, and we believe you are safe to go home. 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 This includes an EpiPen, which you should take only if you get throat closing sensation, difficulty breathing, lip swelling, vomiting, or other signs of severe allergic reaction. Please also take your steroid medication as prescribed , and take Benadryl 25 to 50 mg, every 4-6 hours, if you have symptoms. Occasionally allergic reactions can worsen at about the 6 hour maribell after exposure to the allergen, so please watch out for this and return to the ED if needed. Please follow up with your primary care provider in 1-3 days. We are giving you referral information for our primary care clinic. Call their clinic, tell them you were seen in the ER, and tell them you need a follow-up. If you have any new or worsening symptoms, especially increasing rash, throat closing, wheezing, vomiting, or other symptoms, please come back to the ER at any time ( 24 hours a day). If you are having severe or life threatening symptoms, or symptoms that make it unsafe to drive or have someone drive you, please call 911. - Post Discharge Activity Forms/Work/School Notes: Back to Work
--- NOTE | 2018-07-04 16:33 | PDOC ---
Attending Attestation - Resident Resident Name: Sharon Jolly - ED Attending Attestation I have performed the following: I have examined & evaluated the patient, The case was reviewed & discussed with the resident, I agree w/resident's findings & plan, Exceptions are as noted - HPI HPI: 07/04/18 16:28 33 year old obese F c/ no pmh (with multiple drug allergies) p/w allergic reaction. Approx 3 hours ago, pt was eating hot and sour soup at [employer]. Subsequently developed some mild nausea, flushing of skin, throat itchy sensation, and diffuse itchiness. Denies chest pain, SOB, or lightheadedness. Pt took two tablets of benadryl and came into the ER. - Physicial Exam PE: 07/04/18 16:33 GENERAL: Awake, alert, and fully oriented, in no acute distress HEAD: No signs of trauma EYES: EOMI, sclera anicteric, conjunctiva clear ENT: Auricles normal inspection, hearing grossly normal, nares patent, oropharynx clear without exudates. Moist mucosa. No evidence of airway obstruction. NECK: Normal ROM, supple, LUNGS: Breath sounds equal, clear to auscultation bilaterally. No wheezes, and no crackles EXTREMITIES: Normal range of motion, no edema. No clubbing or cyanosis. No cords, erythema, or tenderness NEUROLOGICAL: Cranial nerves II through XII grossly intact. Normal speech, normal gait SKIN: Warm, Dry, normal turgor, no rashes or lesions noted. - Medical Decision Making 07/04/18 16:34 Vital Signs Temp Pulse Resp BP Pulse Ox 98.6 F 93 H 17 190/125 100 07/04/18 16:18 07/04/18 16:18 07/04/18 16:18 07/04/18 16:18 07/04/18 16:18 Allergic reaction to hot and sour soup. IV benadryl, IV pepcid, IV solumedrol, and IV fluids. Observe. After several hours of observation and pt's symptoms resolve, pt can go home with prednisone and benadryl. Will prescribe epipen for emergencies. 07/04/18 18:16 Pt reports feeling much better after observing for two hours. Return precautions given including reoccurence of allergic reaction.
[2018-07-04] MEDS ORDERED: FAMOTIDINE 20 MG/50 ML IVPB 20 MG/50 ML MG IVPB ONE (16:45)
[2018-07-04 17:16] VITALS: TEMP 98.4
[2018-07-04 18:25] VITALS: BP 170/117; PULSE 88
== END 2018-07-04 18:30 | disposition home or self-care (01) ==
LOC: FER 16:18
PROC: 3E0337Z Introduction of Electrolytic and Water Balance Substance into Peripheral Vein, Percutaneous Approach (ICD-10-PCS; principal; 2018-07-04)
PROC: 3E033GC Introduction of Other Therapeutic Substance into Peripheral Vein, Percutaneous Approach (ICD-10-PCS; 2018-07-04)
DX: T78.40XA Allergy, unspecified, initial encounter (principal); I10 Essential (primary) hypertension
CPT/HCPCS: 99282-25

== ENCOUNTER 2018-07-10 19:20 | Emergency (ER) | payer OTHER ==
[2018-07-10 19:42] VITALS: BP 174/99; PULSE 104; TEMP 97; BMI 44.6
--- NOTE | 2018-07-10 19:46 | PDOC ---
Rapid Medical Evaluation Time Seen by Provider: 07/10/18 19:38 Medical Evaluation: Allergies Allergy/AdvReac Type Severity Reaction Status Date / Time aspirin Allergy Verified 07/04/18 16:19 azithromycin Allergy Rash Verified 07/04/18 16:19 ciprofloxacin [From Cipro] Allergy Vomiting Verified 07/04/18 16:19 ciprofloxacin HCl Allergy Rash Verified 07/04/18 16:19 [From Cipro] codeine [From Guaifen-C] Allergy Verified 07/04/18 16:19 fluconazole [From Diflucan] Allergy Itching Verified 07/04/18 16:19 guaifenesin Allergy Rash Verified 07/04/18 16:19 pesticide Allergy Verified 07/04/18 16:19 07/10/18 19:41 I have performed a brief in-person evaluation of this patient. The patient presents with a chief complaint of: Generalized itching that started shortly after having food allergy testing done today (has allergy results on her person). No sob, throat closing sensation or voice changes. Multiple medication and environmental allergies Pertinent physical exam findings: Stable but prema uncomfortable, no rash observed I have ordered the following:nothing The patient will proceed to the ED for further evaluation. Discharge Disposition - Diagnosis Generalized pruritus - Referrals - Patient Instructions - Post Discharge Activity
[2018-07-10] MEDS ORDERED: diphenhydrAMINE HCL 25 MG CAPSULE (FP) PO ONE ×2 (19:48→19:50)
== END 2018-07-10 22:10 | disposition left against medical advice (07) ==
LOC: JERFT 19:20 → JER 19:20 → JERFT 22:10
DX: T78.1XXA Other adverse food reactions, not elsewhere classified, initial encounter (principal); L29.8 Other pruritus
CPT/HCPCS: 99281-25

== ENCOUNTER 2018-10-11 09:59 | Day surgery (SDC) | payer OTHER ==
[2018-10-10 09:21] VITALS: BMI 43.0
[2018-10-11] MEDS ORDERED: ONDANSETRON 4 MG/2 ML VIAL IVPUSH PRN (13:53)
[2018-10-11] MEDS ORDERED: PROMETHAZINE HCL 25 MG/1 ML VIAL IVPB PRN (13:53)
[2018-10-11] MEDS ORDERED: LIDOCAINE HCL 1%, 10 MG/ML (20ML VIAL) ONE (13:57)
[2018-10-11] MEDS ORDERED: LACTATED RINGERS SOLUTION 1,000 ML IV SCH (14:00)
[2018-10-11] MEDS ORDERED: PROPOFOL 20 ML ONE ×2 (14:12→14:38)
[2018-10-11] MEDS ORDERED: MIDAZOLAM HCL 2 MG/2 ML SINGLE DOSE VIAL ONE (14:12)
[2018-10-11] MEDS ORDERED: SODIUM CHLORIDE 0.9% P/F 10 ML VIAL IJ ONE (14:13)
[2018-10-11] MEDS ORDERED: ceFAZolin SODIUM 1 GM VIAL ONE (14:13)
[2018-10-11] MEDS ORDERED: LIDOCAINE HCL/PF 2% SDV 5ML VIAL ONE (14:13)
[2018-10-11] MEDS ORDERED: ceFAZolin SODIUM 1 GM VIAL IVPB ONE (14:28)
[2018-10-11] MEDS ORDERED: LIDOCAINE HCL 1%, 10 MG/ML (20ML VIAL) NR ONE (14:36)
[2018-10-11] MEDS ORDERED: KETOROLAC TROMETHAMINE 30 MG/1 ML VIAL ONE (15:20)
[2018-10-11] MEDS ORDERED: oxyCODONE HCL 5 MG TABLET ONE (16:32)
[2018-10-11] MEDS ORDERED: oxyCODONE HCL 5 MG TABLET PO PRN ×2 (16:36)
[2018-10-11 17:55] VITALS: BP 132/65; PULSE 90; TEMP 98.3
--- NOTE | 2018-10-11 19:33 | OP ---
DATE OF OPERATION: 10/11/2018 PREOPERATIVE DIAGNOSIS: Left breast fibroadenoma. POSTOPERATIVE DIAGNOSIS: Left breast fibroadenoma. PROCEDURE: Left breast wide localized excision. SURGEON: Judy Lynne M.D. ANESTHESIA: Local IV sedation. ESTIMATED BLOOD LOSS: Minimal. COMPLICATIONS: None. This was a sterile procedure. INDICATION FOR PROCEDURE: The patient presented for screening mammogram and ultrasound, noted a density in the left breast 4 o'clock location. She underwent a needle biopsy radiology and the pathology showed fibroadenoma. She persistently has tenderness right at that spot, and we discussed removed the fibroadenoma to see if that would help her. We discussed the pros and cons of both, and she understood. As the procedure of left breast wide localized excisional biopsy of the mass was discussed, and all the questions answered. PROCEDURE IN DETAIL: The patient was brought to [facility] in [place], was taken into breast imaging, where localized the mass in the lower outer left breast. She was then brought up to the operating room, and after IV sedation and IV antibiotics, the left breast was prepped and draped in usual sterile fashion. The area in the lower outer left breast was anesthetized with 1% lidocaine. A radial incision was made in the left 4 to 5 o'clock location. The wire was used as a guide to get down to the wire, this was incised en bloc, and I could see the mass within this excisional biopsy. This was sent for specimen radiograph. Hemostasis assured with electrocautery. The specimen radiograph showed the mass and wire to be intact within the specimen. This was then sent to pathology for permanent section. Once hemostasis was assured, the fascia was approximated with interrupted 2-0 Vicryl, skin approximated with interrupted 0 Vicryl running 4-0 Biosyn. A sterile dressing of Tegaderm, 4x4s applied. She tolerated procedure well, was taken to recovery in good condition. JUDY LYNNE M.D. [id number]
--- NOTE | 2018-10-16 09:51 | PATH ---
Surgical Pathology Report Patient Name: MARCELLA VARGAS [facility]. Rec. #: [id number] /Age/Gender: 1985 (Age: 33) / F Account: [id number] Location: AMBULATORY SURG Taken: 10/11/2018 Received: 10/11/2018 Reported: 10/16/2018 Physicians: Judy Nesbitt M.D. Specimen(s) Received BREAST MASS Clinical History Left breast fibroadenoma Final Diagnosis LEFT BREAST, EXCISION OF MASS: BREAST TISSUE WITH FIBROADENOMA. ADJACENT BREAST TISSUE SHOWING BENIGN FIBROCYSTIC CHANGES WITH MICROCYST, APOCRINE METAPLASIA, AND STROMAL FIBROSIS. Electronically Signed Nicolasa De Souza M.D. Gross Description Received fresh on an [employer], labeled "left breast excision of mass," is a 5.4 x 4.0 x 1.4 cm. wesley-yellow, irregular, portion of fibroadipose tissue with a needle localization wire present. The specimen is unoriented. There is no skin or nipple present. The specimen is inked blue and serially sectioned. Sectioning reveals a 1.3 x 0.8 x 0.8 cm wesley, rubbery mass abutting the radial margin. The remaining breast parenchyma displays foci of fibrous tissue. Network Firewall Engineer sections are submitted in 4 cassettes as follows: [id number] submitted mass; [id number] motor vehicle field representative tissue. Total formalin fixation time: Approximately 6 hours 10/11/201810/11/2018
== END 2018-10-11 17:45 | disposition home or self-care (01) ==
LOC: JASUSAT 09:59 → EDSTATUS 11:30 → JASUSAT 17:45
PROVIDERS: ATTEND Surgery
PROC: 0HBU0ZX Excision of Left Breast, Open Approach, Diagnostic (ICD-10-PCS; principal; 2018-10-11 13:00)
DX: D24.2 Benign neoplasm of left breast (principal)
CPT/HCPCS: 19281; 84703; 88307-TC; 94760

== ENCOUNTER 2018-12-23 11:19 | Observation (INO) | payer OTHER ==
[2018-12-23] MEDS ORDERED: KETOROLAC TROMETHAMINE 60 MG/2 ML VIAL IM ONE ×2 (11:32→11:39)
[2018-12-23] MEDS ORDERED: diazePAM 2 MG TABLET PO ONE (11:32)
[2018-12-23] MEDS ORDERED: ACETAMINOPHEN 1000 MG/100 ML VIAL (NON FORMULARY) IVPB ONE (11:39)
[2018-12-23] MEDS ORDERED: diazePAM 5 MG TABLET PO ONE (11:39)
--- NOTE | 2018-12-23 11:43 | PDOC ---
Attending Attestation - Resident Resident Name: Adarsh Girard - ED Attending Attestation I have performed the following: I have examined & evaluated the patient, The case was reviewed & discussed with the resident, I agree w/resident's findings & plan, Exceptions are as noted - HPI HPI: 12/23/18 14:40 Reviewed Residents HPI - Physicial Exam PE: 12/23/18 19:01 Vitals: Triage Vital signs reviewed General Appearance: no acute distress, well nourished well developed, Head: Atraumatic, Eyes: Pupils equal reactive round, extraocular movement intact Chest Wall: Nontender Cardiac: Regular rate and rhythym, no murmurs, no rubs, no gallops, Lungs: Clear to auscultation bilateral, good air movement bilaterally, Abdomen: Soft, non distended, normal bowel sounds, non tender to palpation Extremities: Decreased Range of motion to LLE Skin: Warm and dry, no rashes or lesions, no rash, no petechiae Neuro: 4/5 Strenght to LLE Sensation intact to all extremities,gait normal, Decreased Reflex to LLE Psych: normal mood, normal affect - Medical Decision Making 12/23/18 14:48 33 years old with acute onset low back pain and weakness difficulty walking to the left lower extremity On initial evaluation vision with left leg weakness unable to extend at the knee against any resistance unable to flex the ankle against resistance reflexes difficult to evaluate given body habitus X-rays ordered pain medications ordered we'll observe and reevaluate good rectal tone no S1-S2 anesthesia which is reassuring Reevaluation despite IV Tylenol IV morphine IV to 4 to all and Valium patient still with weakness and pain to left lower extremity Patient recommended for MRI to rule out additional pathology 215pm.On-call radiologist Dr. Steward recommended neurology approval prior to MRI 245pm. Dr. Blanco consulted, agrees with stat MRI Dr. Steward informed. Given inability to ambulate leg weakness need for emergent MRI we'll admit to hospitalist for further management.
[2018-12-23] MEDS ORDERED: ACETAMINOPHEN INJECTION 100 ML IVPB ONE (11:58)
--- NOTE | 2018-12-23 11:59 | PDOC ---
History of Present Illness - General Chief Complaint: Back Pain Stated Complaint: back pain Time Seen by Provider: 12/23/18 11:20 History Source: Patient Exam Limitations: No Limitations - History of Present Illness Initial Comments: 12/23/18 12:00 The patient is a 33F with a PMH of morbid obesity who presents to the ER for back pain. The patient states that 2 weeks ago, she was pulling a laundry basket and felt a "pop" in her lower back". Since then, she's had pain that intermittently radiates a sharp pain down her b/l legs. Today, her pain has worsened to the point where she feels weak and unable to walk. She denies any bowel/bladder incontinence, fevers, numbness, and tingling. Past History - Past Medical History Allergies/Adverse Reactions: Allergies Allergy/AdvReac Type Severity Reaction Status Date / Time aspirin Allergy Verified 12/23/18 11:20 azithromycin Allergy Rash Verified 12/23/18 11:20 ciprofloxacin [From Cipro] Allergy Vomiting Verified 12/23/18 11:20 ciprofloxacin HCl Allergy Rash Verified 12/23/18 11:20 [From Cipro] fluconazole [From Diflucan] Allergy Itching Verified 12/23/18 11:20 guaifenesin Allergy Rash Verified 12/23/18 11:20 pesticide Allergy Verified 12/23/18 11:20 Sulfa (Sulfonamide Allergy Verified 12/23/18 11:20 Antibiotics) UNKNOWN FOOD-ALLERGIC Allergy Severe Difficulty Uncoded 10/10/18 09:26 ANAPHYLACTIC Breathing Home Medications: Ambulatory Orders Medroxyprogesterone Acetate [Depo-Provera] 150 mg IM ASDIR 03/14/17 Epinephrine [Epipen 2-Willam] 0.3 mg IJ ASDIR #1 kit 07/04/18 Amlodipine Besylate 5 mg PO DAILY 10/10/18 Lisinopril 10 mg PO DAILY 10/10/18 Anemia: No Asthma: No Cancer: No Cardiac Disorders: No CVA: No COPD: No CHF: No Dementia: No Diabetes: No GI Disorders: No Disorders: No HTN: Yes Hypercholesterolemia: No Liver Disease: No Seizures: No Thyroid Disease: No - Surgical History Abdominal Surgery: Yes (RLQ laproscopic exploratory) Appendectomy: No Cardiac Surgery: No Cholecystectomy: Yes Lung Surgery: No Neurologic Surgery: No Orthopedic Surgery: No - Suicide/Smoking/Psychosocial Hx Smoking Status: No Smoking History: Never smoked Have you smoked in the past 12 months: No Number of Cigarettes Smoked Daily: 0 Hx Alcohol Use: No Drug/Substance Use Hx: No Substance Use Type: None Hx Substance Use Treatment: No Review of Systems - Review of Systems Able to Perform ROS?: Yes Comments:: 12/23/18 12:01 GENERAL/CONSTITUTIONAL: No fever or chills. No weakness. HEAD, EYES, EARS, NOSE AND THROAT: No change in vision. No ear pain or discharge. No sore throat. CARDIOVASCULAR: No chest pain, palpitations, or lightheadedness. RESPIRATORY: No cough, wheezing, shortness of breath, or hemoptysis. GASTROINTESTINAL: No nausea, vomiting, diarrhea, constipation, or abdominal pain. GENITOURINARY: No dysuria, frequency, hematuria, or change in urination. MUSCULOSKELETAL: + for back pain. No joint or muscle swelling or pain. No neck pain. SKIN: No rash or lesions. NEUROLOGIC: + for weakness. No headache, numbness, tingling, loss of consciousness, or change in strength/sensation. Is the patient limited Cambodian proficient: No *Physical Exam - Vital Signs Last Vital Signs Temp Pulse Resp BP Pulse Ox 97.6 F 99 H 18 156/100 99 12/23/18 11:19 12/23/18 11:19 12/23/18 11:19 12/23/18 11:19 12/23/18 11:19 - Physical Exam Comments: 12/23/18 12:01 GENERAL: Well developed, well nourished. Awake and alert. In mild distress. Morbidly obese. HEENT: Normocephalic, atraumatic. Hearing grossly normal. Moist mucous membranes. PERRLA, EOMI. No conjunctival pallor. Sclera are non-icteric. NECK: Supple. Full ROM. No JVD. RECTAL: Normal rectal tone. MUSCULOSKELETAL: Normal range of motion at all joints. No bony deformities or tenderness. No midline spine tenderness. L SI pain. B/l SLR +. EXTREMITIES: No cyanosis. No clubbing. No edema. No calf tenderness or swelling. SKIN: Warm and dry. Normal capillary refill. No rashes. No jaundice. NEUROLOGICAL: Alert, awake, appropriate. Cranial nerves 2-12 grossly intact. No deficits to light touch and temperature in face, upper extremities and lower extremities. 5/5 strength in R quadriceps, hamstrings, and gastrocnemius. 3-4/5 strength in L quadriceps, hamstrings, and gastrocnemius. Normal speech. Gait is ataxiac. PSYCHIATRIC: Cooperative. Good eye contact. Appropriate mood and affect. Moderate Sedation - Procedure Monitoring Vital Signs: Procedure Monitoring Vital Signs Temperature 97.6 F 12/23/18 11:19 Pulse Rate 99 H 12/23/18 11:19 Respiratory Rate 18 12/23/18 11:19 Blood Pressure 156/100 12/23/18 11:19 O2 Sat by Pulse Oximetry (%) 99 12/23/18 11:19 ED Treatment Course - LABORATORY CBC & Chemistry Diagram: 12/23/18 11:45 12/23/18 11:45 Medical Decision Making - Medical Decision Making 12/23/18 12:05 The patient is a 33F with no PMH who presents to the ER with low back pain which has worsened after feeling a pop in her lower back. Concern for cord compression, although less likely due to no midline tenderness and normal rectal tone. Will treat symptomatically and reassess. 12/23/18 13:22 Labs WNL. Gluc elevated. Will hydrate. Pt still in "lots" of pain. Giving morphine and will reassess. Pending lumbar XR. Pt continuing to have difficulty ambulating. 12/23/18 15:51 XR negative. Pt endorsed to MELONIE Gutiérrez. MRI ordered and done. *DC/Admit/Observation/Transfer Diagnosis at time of Disposition: Unable to ambulate Low back pain Qualifiers: Chronicity: acute Back pain laterality: left Sciatica presence: with sciatica Sciatica laterality: sciatica of left side Qualified Code(s): M54.42 - Lumbago with sciatica, left side - Discharge Dispostion Condition at time of disposition: Guarded Decision to Admit order: Yes - Referrals - Patient Instructions - Post Discharge Activity
[2018-12-23 12:02] LABS: BASO % 0.2 % (0-2.0); EOS % 2.6 % (0-4.5); HEMATOCRIT 43.8 % (32.4-45.2); HEMOGLOBIN 14.6 GM/dl (10.7-15.3); LYMPH % 23.6 % (8-40); MCH 30.5 pg (25.7-33.7); MCHC 33.3 g/dl (32.0-36.0); MEAN CELL VOLUME 91.7 fl (80-96); MEAN PLT VOLUME 8.3 fl (7.5-11.1); MONO % 7.4 % (3.8-10.2); NEUT % 66.2 % (42.8-82.8); PLATELET COUNT 276 K/MM3 (134-434); RBC 4.78 M/mm3 (3.60-5.2); RDW 12.5 % (11.6-15.6); WHITE BLOOD COUNT 8.4 K/mm3 (4.0-10.8)
[2018-12-23] MEDS ORDERED: KETOROLAC TROMETHAMINE 30 MG/1 ML VIAL IVPUSH ONE (12:06)
[2018-12-23 12:12] LABS: ALBUMIN 3.6 g/dl (3.4-5.0); ALK PHOS 146 U/L (45-117); ANION GAP 12 MMOL/L (8-16); BILIRUBIN,TOTAL 1.4 mg/dl (0.2-1); BLOOD UREA NITROGEN 16 mg/dl (7-18); CALCIUM 8.8 mg/dl (8.5-10); CHLORIDE 99 mmol/L (98-107); CO2 20 mmol/L (21-32); CREATININE 0.7 mg/dl (0.55-1.3); POTASSIUM 3.8 mmol/L (3.5-5.1); SGOT/AST 32 U/L (15-37); SGPT/ALT 27 U/L (13-61); SODIUM 131 mmol/L (136-145); TOT PROT 7.1 g/dl (6.4-8.2)
[2018-12-23 12:14] LABS: GLUCOSE,RANDOM 323 mg/dl (74-106)
[2018-12-23] MEDS ORDERED: SODIUM CHLORIDE 0.9% 1000 ML INFUS.BAG IV ONE (12:14)
[2018-12-23] MEDS ORDERED: diazePAM 5 MG TABLET ONE (12:20)
[2018-12-23] MEDS ORDERED: KETOROLAC TROMETHAMINE 30 MG/1 ML VIAL ONE (12:20)
[2018-12-23] MEDS ORDERED: morphine CARPU-JECT 4 MG/1 ML DISP.SYRIN IVPUSH ONE (13:16)
[2018-12-23] MEDS ORDERED: morphine SULFATE 4 MG/ML VIAL ONE (13:17)
--- NOTE | 2018-12-23 15:26 | HP ---
CHIEF COMPLAINT: Back pain PCP: None at present; no longer wants to follow with Dr. Romi Guerrier HISTORY OF PRESENT ILLNESS: 33 year-old female with a PMH significant for HTN, and Type II NIDDM. Patient presents to the ED with a complaint of low back pain x 2 weeks when she bent over and felt a "pop." Since then she has had intermittent episodes of sharp pain radiating down her legs, at first down right leg, then down left leg. Today her pain worsened and she feels weak and unable to walk. Denies bowel/ bladder incontinence. Denies paresthesias. Denies fever, sweats, chills. Recent Travel: No PAST MEDICAL HISTORY: Hypertension Type II NIDDM Left breast fibroadenoma PAST SURGICAL HISTORY: Cholecystectomy Breast fibroadenoma excision Social History: Smoking: Alcohol: Drugs: Family History: Allergies aspirin Allergy (Verified 12/23/18 11:20) azithromycin Allergy (Verified 12/23/18 11:20) Rash ciprofloxacin [From Cipro] Allergy (Verified 12/23/18 11:20) Vomiting ciprofloxacin HCl [From Cipro] Allergy (Verified 12/23/18 11:20) Rash fluconazole [From Diflucan] Allergy (Verified 12/23/18 11:20) Itching guaifenesin Allergy (Verified 12/23/18 11:20) Rash pesticide Allergy (Verified 12/23/18 11:20) Sulfa (Sulfonamide Antibiotics) Allergy (Verified 12/23/18 11:20) UNKNOWN FOOD-ALLERGIC ANAPHYLACTIC Allergy (Severe, Uncoded 10/10/18 09:26) Difficulty Breathing ITCH HOME MEDICATIONS: Home Medications Medication Instructions Recorded Medroxyprogesterone Acetate 150 mg IM ASDIR 03/14/17 [Depo-Provera] Epinephrine [Epipen 2-Willam] 0.3 mg IJ ASDIR #1 kit 07/04/18 Amlodipine Besylate 5 mg PO DAILY 10/10/18 Lisinopril 10 mg PO DAILY 10/10/18 REVIEW OF SYSTEMS CONSTITUTIONAL: Absent: fever, chills, diaphoresis, generalized weakness, malaise, loss of appetite, weight change HEENT: Absent: rhinorrhea, nasal congestion, throat pain, throat swelling, difficulty swallowing, mouth swelling, ear pain, eye pain, visual changes CARDIOVASCULAR: Absent: chest pain, syncope, palpitations, irregular heart rate, lightheadedness , peripheral edema RESPIRATORY: Absent: cough, shortness of breath, dyspnea with exertion, orthopnea, wheezing, stridor, hemoptysis GASTROINTESTINAL: Absent: abdominal pain, abdominal distension, nausea, vomiting, diarrhea, constipation, melena, hematochezia GENITOURINARY: Absent: dysuria, frequency, urgency, hesitancy, hematuria, flank pain, genital pain MUSCULOSKELETAL: +back pain radiating down alternating legs, lower extremity weakness Absent: myalgia, arthralgia, joint swelling, back pain, neck pain SKIN: Absent: rash, itching, pallor HEMATOLOGIC/IMMUNOLOGIC: Absent: easy bleeding, easy bruising, lymphadenopathy, frequent infections ENDOCRINE: Absent: unexplained weight gain, unexplained weight loss, heat intolerance, cold intolerance NEUROLOGIC: Absent: headache, focal weakness or paresthesias, dizziness, unsteady gait, seizure, mental status changes, bladder or bowel incontinence PSYCHIATRIC: Absent: anxiety, depression, suicidal or homicidal ideation, hallucinations. PHYSICAL EXAMINATION Vital Signs - 24 hr 12/23/18 12/23/18 11:19 14:29 Temperature 97.6 F Pulse Rate 99 H Pulse Rate [ 95 H Apical] Respiratory 18 18 Rate Blood Pressure 156/100 Blood Pressure 130/80 [Arm] O2 Sat by Pulse 99 99 Oximetry (%) GENERAL: Awake, alert, and fully oriented, in no acute distress. HEAD: Normal with no signs of trauma. EYES: Pupils equal, round and reactive to light, extraocular movements intact, sclera anicteric, conjunctiva clear. No lid lag. EARS, NOSE, THROAT: Ears normal, nares patent, oropharynx clear without exudates. Moist mucous membranes. NECK: Normal range of motion, supple without lymphadenopathy, JVD, or masses. LUNGS: Breath sounds equal, clear to auscultation bilaterally. No wheezes, and no crackles. No accessory muscle use. HEART: Regular rate and rhythm, normal S1 and S2 without murmur, rub or gallop. ABDOMEN: Soft, nontender, not distended MUSCULOSKELETAL: Normal range of motion at all joints. No bony deformities or tenderness. No CVA tenderness. UPPER EXTREMITIES: 2+ pulses, warm, well-perfused. No cyanosis. No clubbing. No peripheral edema. LOWER EXTREMITIES: 2+ pulses, warm, well-perfused. No calf tenderness. No peripheral edema. NEUROLOGICAL: Cranial nerves II-XII intact. Normal speech. Gait not observed. Laboratory Results - last 24 hr 12/23/18 12/23/18 12/23/18 11:45 11:45 11:45 WBC 8.4 RBC 4.78 Hgb 14.6 Hct 43.8 MCV 91.7 MCH 30.5 MCHC 33.3 RDW 12.5 Plt Count 276 MPV 8.3 Absolute Neuts (auto) 5.6 Neutrophils % 66.2 Lymphocytes % 23.6 Monocytes % 7.4 Eosinophils % 2.6 Basophils % 0.2 Sodium 131 L Potassium 3.8 Chloride 99 Carbon Dioxide 20 L Anion Gap 12 BUN 16 Creatinine 0.7 Creat Clearance w eGFR > 60 Random Glucose 323 H* Calcium 8.8 Total Bilirubin 1.4 H AST 32 ALT 27 Alkaline Phosphatase 146 H Total Protein 7.1 Albumin 3.6 Serum , Qual Negative Urine HCG, Qual 12/23/18 12:01 WBC RBC Hgb Hct MCV MCH MCHC RDW Plt Count MPV Absolute Neuts (auto) Neutrophils % Lymphocytes % Monocytes % Eosinophils % Basophils % Sodium Potassium Chloride Carbon Dioxide Anion Gap BUN Creatinine Creat Clearance w eGFR Random Glucose Calcium Total Bilirubin AST ALT Alkaline Phosphatase Total Protein Albumin Serum , Qual Urine HCG, Qual Negative ASSESSMENT/PLAN 33 year-old female with a PMH significant for HTN, and Type II NIDDM. Placed on observation for low back pain and lower extremity weakness. Low back pain --Xray LSS: no fracture, no acute process --MRI LSS: taken, pending dictation Type II NIDDM --on glimeperide --A1C 8.2 Pseuohyponatremia --corrected Na 135 Hypertension --continue home amlodipine and lisinopril FEN Fluids: PO intake adequate Electrolytes: replete as indicated Nutrition: low sodium, diabetic DVT prophylaxis: short expected stay, oob, ambulation This report was requested by: Ute Gutiérrez | Reference #: [id number] Others' Prescriptions Patient Name: Jagruti Wise Date: 1985 Address: [address] [place] [address] Sex: Female Rx Written Rx Dispensed Drug Quantity Days Supply Prescriber Name 10/11/2018 10/11/2018 acetaminophen-cod #3 tablet 14 2 Alma Guerrier Visit type - Emergency Visit Emergency Visit: Yes ED Registration Date: 12/23/18 Care time: The patient presented to the Emergency Department on the above date and was hospitalized for further evaluation of their emergent condition. - New Patient This patient is new to me today: Yes Date on this admission: 01/04/19 - Critical Care Critical Care patient: No
[2018-12-23] MEDS ORDERED: LISINOPRIL 10 MG TABLET (FP) PO ONE (16:55)
[2018-12-23] MEDS ORDERED: amLODIPine BESYLATE 5 MG TABLET (FP) PO ONE (16:56)
--- NOTE | 2018-12-23 17:22 | CON.NEURO ---
Consult Consult Specialty:: Dwight Referred by:: ER Reason for Consultation:: back pain - History of Present Illness History of Present Illness: 33-year-old right-handed female patient who presented with insidious onset of back pain Two [facility] No direct trauma History of migraine headache No direct fall No urinary inconetnce difficulty with BM - History Source History Provided By: Patient Limitations to Obtaining History: Clinical Condition - Alcohol/Substance Use Hx Alcohol Use: No - Smoking History Smoking history: Never smoked Have you smoked in the past 12 months: No Aproximately how many cigarettes per day: 0 Home Medications - Allergies Allergies/Adverse Reactions: Allergies Allergy/AdvReac Type Severity Reaction Status Date / Time aspirin Allergy Verified 12/23/18 11:20 azithromycin Allergy Rash Verified 12/23/18 11:20 ciprofloxacin [From Cipro] Allergy Vomiting Verified 12/23/18 11:20 ciprofloxacin HCl Allergy Rash Verified 12/23/18 11:20 [From Cipro] fluconazole [From Diflucan] Allergy Itching Verified 12/23/18 11:20 guaifenesin Allergy Rash Verified 12/23/18 11:20 pesticide Allergy Verified 12/23/18 11:20 Sulfa (Sulfonamide Allergy Verified 12/23/18 11:20 Antibiotics) UNKNOWN FOOD-ALLERGIC Allergy Severe Difficulty Uncoded 10/10/18 09:26 ANAPHYLACTIC Breathing - Home Medications Home Medications: Ambulatory Orders Medroxyprogesterone Acetate [Depo-Provera] 150 mg IM ASDIR 03/14/17 Epinephrine [Epipen 2-Willam] 0.3 mg IJ ASDIR #1 kit 07/04/18 Amlodipine Besylate 5 mg PO DAILY 10/10/18 Lisinopril 10 mg PO DAILY 10/10/18 Glimepiride 2 mg PO DAILY 12/23/18 Family Disease History - Family Disease History Family History: Denies (CVA) Review of Systems - Review of Systems Constitutional: reports: No Symptoms Eyes: reports: No Symptoms HENT: reports: No Symptoms Neurological: reports: Change in LOC, Headache, Incoordination, Numbness Physical Exam-Neuro Vital Signs: Vital Signs Temperature 97.6 F 12/23/18 11:19 Pulse Rate 99 H 12/23/18 17:08 Respiratory Rate 16 12/23/18 17:08 Blood Pressure 110/56 L 12/23/18 17:08 O2 Sat by Pulse Oximetry (%) 99 12/23/18 17:08 Constitutional: Yes: Well Nourished Neck: Yes: WNL Cardiovascular: Yes: WNL Labs: CBC, BMP 12/23/18 11:45 12/23/18 11:45 - Neuro Exam Level Of Consciousness: Yes: Oriented to Person, Oriented to Place, Oriented to Time Eyes: Yes: PERRLA Speech: WNL Dominant Hand: Right DTR's: 1+ Left Bicep, 1+ Right Bicep, 1+ Left Tricep, 1+ Right Tricep Response to light touch: Normal Response to pain prick: Normal Response to temperature: Normal Motor Strength: 3/5: Left Arm, Right Arm, Left Leg, Right Leg Imaging - Results MRI: Image Reviewed Problem List - Problems (1) Low back pain Assessment/Plan: Acute back pain syndrome Spinal stenosis No evidence of neuropathy 1. Neuro check s 2. Optimize pain killer 3. Lyrica 4. PM consult Code(s): M54.5 - LOW BACK PAIN Qualifiers: Chronicity: acute Back pain laterality: left Sciatica presence: with sciatica Sciatica laterality: sciatica of left side Qualified Code(s): M54.42 - Lumbago with sciatica, left side
[2018-12-23 18:00] VITALS: BMI 43.3
[2018-12-23] MEDS: PREGABALIN 25 MG CAPSULE PO SCH (21:31)
[2018-12-24] MEDS ORDERED: oxyCODONE HCL 5 MG TABLET PO ONE (06:06)
[2018-12-24] MEDS: GLIMEPIRIDE 2 MG TABLET (FP) PO SCH (08:04)
[2018-12-24] MEDS: PREGABALIN 25 MG CAPSULE PO SCH ×2 (09:24→21:44)
[2018-12-24] MEDS: amLODIPine BESYLATE 5 MG TABLET (FP) PO SCH (09:24)
[2018-12-24] MEDS: LISINOPRIL 10 MG TABLET (FP) PO SCH (09:24)
[2018-12-25] MEDS: GLIMEPIRIDE 2 MG TABLET (FP) PO SCH (06:28)
[2018-12-25 06:42] VITALS: PULSE 85
[2018-12-25 09:45] VITALS: BP 130/70; TEMP 98.1
[2018-12-25] MEDS: PREGABALIN 25 MG CAPSULE PO SCH (09:46)
[2018-12-25] MEDS: amLODIPine BESYLATE 5 MG TABLET (FP) PO SCH (09:46)
[2018-12-25] MEDS: LISINOPRIL 10 MG TABLET (FP) PO SCH (09:46)
--- NOTE | 2018-12-25 10:22 | DS ---
Physical Exam: SUBJECTIVE: Patient seen and examined at bedside. Feels same. OBJECTIVE: Vital Signs Period Temp Pulse Resp BP Sys/Pak Pulse Ox Last 24 Hr 97.9 F-98.5 F 85-94 16-19 117-144/57-82 98-99 PHYSICAL EXAM GENERAL: The patient is awake, alert, and fully oriented, in no acute distress. HEAD: Normal with no signs of trauma. EYES: PERRL, extraocular movements intact, sclera anicteric, conjunctiva clear. ENT: Ears normal, nares patent, oropharynx clear without exudates, moist mucous membranes. NECK: Trachea midline, full range of motion, supple. LUNGS: Breath sounds equal, clear to auscultation bilaterally, no wheezes, no crackles, no accessory muscle use. HEART: Regular rate and rhythm, S1, S2 without murmur, rub or gallop. ABDOMEN: Soft, nontender, nondistended, normoactive bowel sounds, no guarding, no rebound, no hepatosplenomegaly, no masses. EXTREMITIES: 2+ pulses, warm, well-perfused, no edema. NEUROLOGICAL: Cranial nerves II through XII grossly intact. Normal speech, gait not observed. PSYCH: Normal mood, normal affect. SKIN: Warm, dry, normal turgor, no rashes or lesions noted. LABS Laboratory Results - last 24 hr 12/23/18 12/24/18 12/24/18 14:22 11:30 16:36 POC Glucometer 166 127 Direct Bilirubin 0.1 12/24/18 12/25/18 22:04 06:04 POC Glucometer 169 166 Direct Bilirubin HOSPITAL COURSE: Date of Admission:12/23/18 Date of Discharge: 12/25/18 Pre hospital course 33 year-old female with a PMH significant for HTN, and Type II NIDDM. Patient presents to the ED with a complaint of low back pain x 2 weeks when she bent over and felt a "pop." Since then she has had intermittent episodes of sharp pain radiating down her legs, at first down right leg, then down left leg. Today her pain worsened and she feels weak and unable to walk. Denies bowel/ bladder incontinence. Denies paresthesias. Denies fever, sweats, chills. Subsequent hospital course by problem list Lumbar degenerative disc disease --Xray LSS: no fracture, no acute process --MRI LSS: (1) L3-L4 disc dessication and minimal broadbase disc bulge with a posterior annula tear, no gross nerve root impingment; (2) L5-S1 mild central disc protrusion with a posterior annular tear, no gross nerve root impingement --seen and evaluated by neurology Dr. Quintanilla, started on Lyrica --discussed with neurosurgeon Dr. Nehemias Holcomb who reviewed imaging, no surgical intervention indicated at this time but does recommend pain management for possible steroid injection --patient has appointment today with Dr. Manjit Horn, grant administrator/pain management, at 1:00pm. --patient has been ambulating without assistance in the hospital observed by nurses and staff Type II NIDDM --continued on glimeperide --A1C 8.2 Pseuohyponatremia --corrected Na 135 Hypertension --continued home amlodipine and lisinopril Minutes to complete discharge: 35 Discharge Summary Reason For Visit: LOW BACK PAIN,UNABLE TO WALK Current Active Problems Low back pain (Acute) Unable to ambulate (Acute) Condition: Stable - Instructions Diet, Activity, Other Instructions: You have an appointment today at 1:00pm with Dr. Manjit Horn, a pain management provider. Please go to his office at [address] [place] [address]. You also indicated you wanted a new primary care provider. You may wish to make an appointment at the [facility] led by Dr. Farris. Contact information is enclosed in this discharge packet. Call them to make an appointment. Referrals: Derek Farris MD [Staff Physician] - Manjit Horn MD [Staff Physician] - 12/25/18 1:00 pm Disposition: HOME - Home Medications Comprehensive Discharge Medication List: Ambulatory Orders Medroxyprogesterone Acetate [Depo-Provera] 150 mg IM ASDIR 03/14/17 Epinephrine [Epipen 2-Willam] 0.3 mg IJ ASDIR #1 kit 07/04/18 Amlodipine Besylate 5 mg PO DAILY 10/10/18 Lisinopril 10 mg PO DAILY 10/10/18 Glimepiride 2 mg PO DAILY 12/23/18 This patient is new to me today: No Emergency Visit: Yes ED Registration Date: 12/23/18 Care time: The patient presented to the Emergency Department on the above date and was hospitalized for further evaluation of their emergent condition. Critical Care patient: No - Discharge Referral Referred to [facility] No
== END 2018-12-25 12:30 | disposition home or self-care (01) ==
LOC: FER 11:19 → FM/S 14:21
PROVIDERS: ADMIT Internal Medicine; ATTEND Nurse Practitioner Acute Care
PROC: 3E0333Z Introduction of Anti-inflammatory into Peripheral Vein, Percutaneous Approach (ICD-10-PCS; principal; 2018-12-23)
PROC: 3E033NZ Introduction of Analgesics, Hypnotics, Sedatives into Peripheral Vein, Percutaneous Approach (ICD-10-PCS; 2018-12-23)
DX: R26.2 Difficulty in walking, not elsewhere classified (principal); M54.42 Lumbago with sciatica, left side; E87.1 Hypo-osmolality and hyponatremia; I10 Essential (primary) hypertension; E11.9 Type 2 diabetes mellitus without complications; E66.01 Morbid (severe) obesity due to excess calories; Z68.41 Body mass index [BMI] 40.0-44.9, adult; Z88.1 Allergy status to other antibiotic agents; Z88.2 Allergy status to sulfonamides; Z88.6 Allergy status to analgesic agent; Z91.018 Allergy to other foods; M51.36 Other intervertebral disc degeneration, lumbar region; M51.27 Other intervertebral disc displacement, lumbosacral region
CPT/HCPCS: 36415; 72100-TC-FY; 72148-TC; 80053; 82248; 82962; 83036; 84703; 85025; 99283-25; G0378; J0131; J7030

== ENCOUNTER 2018-12-25 13:32 | Emergency (ER) | payer OTHER ==
[2018-12-25 13:45] VITALS: BP 144/96; PULSE 124; TEMP 97.5; BMI 41.8
--- NOTE | 2018-12-25 14:29 | PDOC ---
History of Present Illness - General Chief Complaint: Back Pain Stated Complaint: LOWER BACK PAIN Time Seen by Provider: 12/25/18 14:14 - History of Present Illness Initial Comments: 12/25/18 14:27 33 yo F with h/o HTN, NIDDM, spinal stenosis, and chronic back pain who p/w low back pain. Patient reports onset of sharp, lower back pain beginning Sunday ( 12-21-18). 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 States that she felt sudden "popping," sensation of lower back with progressive, dull, lower back pain, and sharp shooting pain down BL LE. Now with 4 days of acute, and worsening lower back pain. Pain worse with ambulation, and weight bearing, erect posture. Slightly improved with leaning foward. [facility] (12[facility]23-12/25/18) MRI revealed L3-L4 disc desiccation and minimal broadbase disc bulge with a posterior annular tear and without gross nerve root impingement L5-S1 mild central disc protrusion with a posterior annular tear and without gross nerve root impingement. Mild bilateral facet hypertrophy. Was evaluated by Dr. Quintanilla neurology who started patient on Lyrica. Patient was discussed with Dr. Nehemias Holcomb neurosurgery who reported that patient not candidate for surgical managem,ent, but possible steroid injection. Patient was discharged following ability to ambulate hospital as observed by hospital staff. Arrives from outside pain management apt. Dr. Manjit Horn for lower back pain and difficultly ambulating 2/2 pain. Patient denies OSORIO, vision change, palpitations, cough, wheezing, orthopena, PND , leg swelling/pain, N/V, F,C, CP, SOB, urinary complaints, hematuria, BPR, abdominal pain, diarrhea, constipation, lightheadedness, weakness, sensory changes. PMHx: as noted above ROS: as noted SHx: Denies IVDA, tobacco use. Social Etoh Past History - Past Medical History Allergies/Adverse Reactions: Allergies Allergy/AdvReac Type Severity Reaction Status Date / Time aspirin Allergy Verified 12/25/18 13:41 azithromycin Allergy Rash Verified 12/25/18 13:41 ciprofloxacin [From Cipro] Allergy Vomiting Verified 12/25/18 13:41 ciprofloxacin HCl Allergy Rash Verified 12/25/18 13:41 [From Cipro] fluconazole [From Diflucan] Allergy Itching Verified 12/25/18 13:41 guaifenesin Allergy Rash Verified 12/25/18 13:41 pesticide Allergy Verified 12/25/18 13:41 Sulfa (Sulfonamide Allergy Verified 12/25/18 13:41 Antibiotics) UNKNOWN FOOD-ALLERGIC Allergy Severe Difficulty Uncoded 12/25/18 13:41 ANAPHYLACTIC Breathing Home Medications: Ambulatory Orders Medroxyprogesterone Acetate [Depo-Provera] 150 mg IM ASDIR 03/14/17 Epinephrine [Epipen 2-Willam] 0.3 mg IJ ASDIR #1 kit 07/04/18 Amlodipine Besylate 5 mg PO DAILY 10/10/18 Lisinopril 10 mg PO DAILY 10/10/18 Glimepiride 2 mg PO DAILY 12/23/18 Lidocaine 5% Patch [Lidoderm Patch -] 1 patch TP DAILY #7 patch 12/25/18 Methylprednisolone [Medrol Dose Willam] 4 mg PO ASDIR #21 tablet 12/25/18 Anemia: No Asthma: No Cancer: No Cardiac Disorders: No CVA: No COPD: No CHF: No Dementia: No Diabetes: No GI Disorders: No Disorders: No HTN: Yes Hypercholesterolemia: No Liver Disease: No Seizures: No Thyroid Disease: No - Surgical History Abdominal Surgery: Yes (RLQ laproscopic exploratory) Appendectomy: No Cardiac Surgery: No Cholecystectomy: Yes Lung Surgery: No Neurologic Surgery: No Orthopedic Surgery: No - Suicide/Smoking/Psychosocial Hx Smoking Status: No Smoking History: Unknown if ever smoked Have you smoked in the past 12 months: No Number of Cigarettes Smoked Daily: 0 Hx Alcohol Use: No Drug/Substance Use Hx: No Substance Use Type: None Hx Substance Use Treatment: No Review of Systems - Review of Systems Comments:: 12/25/18 14:28 GENERAL/CONSTITUTIONAL: No fever or chills. No weakness. HEAD, EYES, EARS, NOSE AND THROAT: No change in vision. No ear pain or discharge. No sore throat. CARDIOVASCULAR: No chest pain or shortness of breath RESPIRATORY: No cough, wheezing, or hemoptysis. GASTROINTESTINAL: No nausea, vomiting, diarrhea or constipation. GENITOURINARY: No dysuria, frequency, or change in urination. MUSCULOSKELETAL: No joint or muscle swelling or pain. No neck or back pain. SKIN: No rash NEUROLOGIC: + Lower back pain. No headache, vertigo, loss of consciousness, or change in sensation. ENDOCRINE: No increased thirst. No abnormal weight change HEMATOLOGIC/LYMPHATIC: No anemia, easy bleeding, or history of blood clots. ALLERGIC/IMMUNOLOGIC: No hives or skin allergy. *Physical Exam - Vital Signs Last Vital Signs Temp Pulse Resp BP Pulse Ox 97.5 F L 124 H 26 H 144/96 98 12/25/18 13:44 12/25/18 13:44 12/25/18 13:44 12/25/18 13:44 12/25/18 13:44 - Physical Exam Comments: 12/25/18 14:28 GENERAL: Awake, alert, and fully oriented, in no acute distress HEAD: No signs of trauma, normocephalic, atraumatic EYES: PERRLA, EOMI, sclera anicteric, conjunctiva clear ENT: Hearing grossly normal, nares patent, oropharynx clear without exudates. Moist mucosa NECK: Normal ROM, supple, no lymphadenopathy, JVD, or masses LUNGS: No distress, speaks full sentences, clear to auscultation bilaterally HEART: Regular rate and rhythm, normal S1 and S2, no murmurs, rubs or gallops, peripheral pulses normal and equal bilaterally. ABDOMEN: Soft, nontender, normoactive bowel sounds. No guarding, no rebound. No masses EXTREMITIES : Normal inspection, Normal range of motion, no edema. No clubbing or cyanosis. BACK: + Lower/lumbar sacral midline ttp. Neg bony deformity palpated or stepoff. Absent overlying skin change NEUROLOGICAL: Patient plantar or dorsisflex during exam, but is able to stand assisted, and seen moving BL LE by staff. Cranial nerves II through XII grossly intact. Normal speech, no focal sensorimotor deficits SKIN: Warm, Dry, normal turgor, no rashes or lesions noted Moderate Sedation - Procedure Monitoring Vital Signs: Procedure Monitoring Vital Signs Temperature 97.5 F L 12/25/18 13:44 Pulse Rate 124 H 12/25/18 13:44 Respiratory Rate 26 H 12/25/18 13:44 Blood Pressure 144/96 12/25/18 13:44 O2 Sat by Pulse Oximetry (%) 98 12/25/18 13:44 Medical Decision Making - Medical Decision Making 12/25/18 14:28 33 yo F with h/o HTN, NIDDM, spinal stenosis, and chronic back pain who p/w low back pain. HR 124, RR 26, vitals otherwise wnl, AF. + Lower/lumbar sacral midline ttp. Absent alarm findings. Denies N/V, F,C, CP, SOB, urinary complaints, hematuria, BPR, abdominal pain, diarrhea, constipation, lightheadedness, sensory changes, urinary incontinence/retention. Recently discharged from [facility] today following neurology eval, started on Lyrica, and discussed with neurosurgery for L3-L4 disc dessication and posterior annular tear and without gross nerve root impingement. Not candidate for surgical intervention. Will attempt to provide oral analgesia and reassess. Ed Course: 12/25/18 15:[address] Manjit Horn ([id number]) he agreed to perform injection on patient, but pt. unable to walk up steps to get to his office. The elevator in the building is not in service. Advised patient to see provider on lower floor of same building 12/25/18 16:49 Medrol dose willam, and lidoderm patch sent to pharmacy medrol, lidoderm charleen sheehan 500 12/25/18 17:09 Patient stable for d/c with return precautions. Advised to f/u with pain management *DC/Admit/Observation/Transfer Diagnosis at time of Disposition: Chronic lower back pain Qualifiers: Back pain laterality: midline Sciatica presence: with sciatica Sciatica laterality: bilateral sciatica Qualified Code(s): M54.41 - Lumbago with sciatica , right side - Discharge Dispostion Condition at time of disposition: Stable - Prescriptions Prescriptions: Lidocaine 5% Patch [Lidoderm Patch -] 1 patch TP DAILY #7 patch Methylprednisolone [Medrol Dose Willam] 4 mg PO ASDIR #21 tablet - Referrals Referrals: Nehemias Holcomb MD, FAANS [Primary Care Provider] - - Patient Instructions Printed Discharge Instructions: DI for Low Back Pain Additional Instructions: Please return to the emergency department with any new or worsening symptoms or concerns. Please follow up with your neurologist and pain management physician within 72 hours. Take Medrol dose pack, and lidoderm patch as directed for symptom relief. - Post Discharge Activity - Attestations Physician Attestion: 12/25/18 15:47 I attest to the information provided in this note.
--- NOTE | 2018-12-25 16:39 | PDOC ---
Documentation entered by Neli Vigil SCRIBE, acting as scribe for Stacey Deng MD. Attending Attestation - Resident Resident Name: Reji Mendez - [facility] HPI: 12/25/18 16:05 The patient is a 33 year old female with a significant past medical history of HTN, NIDDM, spinal stenosis, and chronic back pain who presents to the ED with sharp, low back pain since Sunday. Patient reports she was bending over and lifting laundry and felt a "pop". She states she has pain radiating down bilateral lower extremities today. She reports pain exacerbation with ambulation and weight bearing. Patient denies OSORIO, vision change, palpitations, cough, wheezing, orthopena, PND , leg swelling/pain, N/V, F,C, CP, SOB, urinary complaints, hematuria, BPR, abdominal pain, diarrhea, constipation, lightheadedness, weakness, sensory changes. SHx: Denies IVDA, tobacco use. Social Etoh Allergies: aspirin, azithromycin, ciprofloxacin - Physicial Exam PE: 12/25/18 16:33 pt awake alert talking, sitting in wheelchair. pt refusing any additional exam - Medical Decision Making 12/25/18 16:34 33 yo F /ho herniated disc, was evaluated inpatient at [facility] and admitted for 3 days. had MRI showing minimal disc bulge and nerve root impingement lower lumbar region. followed up with dr at pain management office today DR Horn, unable to do injection because office is on the 3rd floor. sent to ED. pt states has been having difficulty at home because has stairs in her home. no f/c no new injuries. had extensive discussion with patient regarding options for a new pain management doctor and followup outpatient. per admitting TEAM pt ambulating prior to discharge, and MRI was evaluated by DR Ambrocio, felt to be nonsurgical. MRI reviewed by myself. at this point pt refusing my care, will d/w with Other ed attending for evaluation. . Stacey Deng MD: This documentation has been prepared by the Musa malcolm Amanda, SCRIBE, under my direction and personally reviewed by me in its entirety. I confirm that the documentation accurately reflects all work, treatment, procedures, and medical decision making performed by me.
[2018-12-25] MEDS ORDERED: LIDOCAINE 5% TOPICAL PATCH TP ONE (16:48)
[2018-12-25] MEDS ORDERED: METHOCARBAMOL 500 MG TABLET PO ONE (16:48)
[2018-12-25] MEDS ORDERED: methylPREDNISolone 8 MG TABLET PO ONE (16:48)
[2018-12-25] MEDS ORDERED: methylPREDNISolone 2 MG TABLET PO ONE (17:00)
--- NOTE | 2018-12-25 17:14 | PDOC ---
*Physical Exam - Vital Signs Last Vital Signs Temp Pulse Resp BP Pulse Ox 97.5 F L 124 H 26 H 144/96 98 12/25/18 13:44 12/25/18 13:44 12/25/18 13:44 12/25/18 13:44 12/25/18 13:44 - Physical Exam Comments: 12/25/18 17:08 asked to see the pt. pt is a morbidly obese 33 y/o female with chronic back pain who presents with persistent lower back pain with left leg parasthesias. pt c/o inability to walk. pt recently d/c from [facility] where she was treated for same sxs. pts MRI from 12/23/18 shows minimal disk bulges at 2 levels but no cord or nerve root involvement. cauda equina or conus medularis are highly unlikley. will treat [facility] medrol dose pack, lidocaine patches and muscle relaxants with outpt pain management f/u. *DC/Admit/Observation/Transfer Diagnosis at time of Disposition: Chronic lower back pain Qualifiers: Back pain laterality: midline Sciatica presence: with sciatica Sciatica laterality: bilateral sciatica Qualified Code(s): M54.41 - Lumbago with sciatica , right side - Discharge Dispostion Condition at time of disposition: Stable - Prescriptions Prescriptions: Lidocaine 5% Patch [Lidoderm Patch -] 1 patch TP DAILY #7 patch Methylprednisolone [Medrol Dose Willam] 4 mg PO ASDIR #21 tablet - Referrals Referrals: Nehemias Holcomb MD, FAANS [Primary Care Provider] - - Patient Instructions Printed Discharge Instructions: DI for Low Back Pain Additional Instructions: Please return to the emergency department with any new or worsening symptoms or concerns. Please follow up with your neurologist and pain management physician within 72 hours. - Post Discharge Activity
[2018-12-25] MEDS ORDERED: METHOCARBAMOL 500 MG TABLET ONE (17:19)
[2018-12-25] MEDS ORDERED: LIDOCAINE 5% TOPICAL PATCH ONE (17:19)
[2018-12-25] MEDS ORDERED: LIDOCAINE PATCH REMOVAL MC SCH (22:00)
== END 2018-12-25 17:49 | disposition home or self-care (01) ==
LOC: SUPCPDRO 13:32 → JER 13:32
DX: M54.41 Lumbago with sciatica, right side (principal); I10 Essential (primary) hypertension; E11.9 Type 2 diabetes mellitus without complications; G89.29 Other chronic pain; M48.00 Spinal stenosis, site unspecified
CPT/HCPCS: 99282-25

== ENCOUNTER 2019-01-06 13:46 | Observation (INO) | payer OTHER ==
[2019-01-06] MEDS ORDERED: morphine CARPU-JECT 2 MG/1 ML DISP.SYRIN IVPUSH ONE (15:00)
--- NOTE | 2019-01-06 15:34 | PDOC ---
History of Present Illness - General Chief Complaint: Back Pain Stated Complaint: SENT BY PCP Time Seen by Provider: 01/06/19 14:48 History Source: Patient Exam Limitations: No Limitations - History of Present Illness Initial Comments: 01/06/19 15:26 33-year-old female presents to ED with complaints of continual low back pain despite recent receiving an epidural 5 days ago by pain management. Patient states had bent over while doing laundry approximately 1 month ago and felt a pop since then she's been having sharp pain rating down her legs which she describes as electric-like sharp pain. Patient denies paresthesia, fever, chills , night sweats or incontinence. Patient states the pain is causing her difficulty walking and at times is not making to the bathroom to urinate and time. Patient denies leaking of urine or bowel incontinence. Occurred: reports: other Severity: reports: moderate Pain Location: reports: back Method of Injury: Yes: other Modifying Factors: improves with: None Associated Symptoms (Fall): trouble walking Past History - Travel Traveled outside of the country in the last 30 days: No Close contact w/someone who was outside of country & ill: No - Past Medical History Allergies/Adverse Reactions: Allergies Allergy/AdvReac Type Severity Reaction Status Date / Time aspirin Allergy Verified 01/06/19 14:05 azithromycin Allergy Rash Verified 01/06/19 14:05 ciprofloxacin [From Cipro] Allergy Vomiting Verified 01/06/19 14:05 ciprofloxacin HCl Allergy Rash Verified 01/06/19 14:05 [From Cipro] fluconazole [From Diflucan] Allergy Itching Verified 01/06/19 14:05 guaifenesin Allergy Rash Verified 01/06/19 14:05 pesticide Allergy Verified 01/06/19 14:05 Sulfa (Sulfonamide Allergy Verified 01/06/19 14:05 Antibiotics) UNKNOWN FOOD-ALLERGIC Allergy Severe Difficulty Uncoded 01/06/19 14:05 ANAPHYLACTIC Breathing Home Medications: Ambulatory Orders Amlodipine Besylate 5 mg PO DAILY 10/10/18 Lisinopril 10 mg PO DAILY 10/10/18 Glimepiride 2 mg PO DAILY 12/23/18 Cyclobenzaprine HCl [Flexeril -] 10 mg PO TID #20 tablet 01/07/19 Diazepam [Valium] 5 mg PO Q8H PRN #10 tablet MDD 15mg 01/07/19 Oxycodone HCl/Acetaminophen [Percocet 10-325 mg Tablet] 1 each PO QID #40 tablet MDD 4 01/07/19 Anemia: No Asthma: No Cancer: No Cardiac Disorders: No CVA: No COPD: No CHF: No Dementia: No Diabetes: No GI Disorders: No Disorders: No HTN: Yes Hypercholesterolemia: No Liver Disease: No Seizures: No Thyroid Disease: No - Surgical History Abdominal Surgery: Yes (RLQ laproscopic exploratory) Appendectomy: No Cardiac Surgery: No Cholecystectomy: Yes Lung Surgery: No Neurologic Surgery: No Orthopedic Surgery: No - Reproductive History LMP Normal: No - Immunization History Immunization Up to Date: Yes - Suicide/Smoking/Psychosocial Hx Smoking Status: No Smoking History: Never smoked Have you smoked in the past 12 months: No Number of Cigarettes Smoked Daily: 0 Hx Alcohol Use: No Drug/Substance Use Hx: No Substance Use Type: None Hx Substance Use Treatment: No Patient Lives Alone: No Lives with/in: spouse/SO Trauma Specific PMHX - Complaint Specific PMHX Arthritis: No Back Injury: No Review of Systems - Review of Systems Able to Perform ROS?: No Is the patient limited Maori proficient: No Constitutional: No: Symptoms Reported HEENTM: No: Symptoms Reported Respiratory: No: Symptoms reported Cardiac (ROS): No: Symptoms Reported ABD/GI: No: Symptoms Reported : Yes: Other Musculoskeletal: Yes: Back Pain, Muscle Weakness (rafael quadracep) Integumentary: No: Symptoms Reported Neurological: Yes: Paresthesia, Tingling. No: Numbness, Dizziness Endocrine: No: Symptoms Reported Hematologic/Lymphatic: No: Symptoms Reported *Physical Exam - Vital Signs Last Vital Signs Temp Pulse Resp BP Pulse Ox 98.2 F 111 H 16 142/91 98 01/06/19 14:05 01/06/19 14:05 01/06/19 14:05 01/06/19 14:05 01/06/19 14:05 - Physical Exam General Appearance: Yes: Nourished, Appropriately Dressed. No: Apparent Distress HEENT: negative: Pale Conjunctivae Neck: positive: Supple. negative: Normal Thyroid, Decreased range of motion Respiratory/Chest: positive: Lungs Clear, Normal Breath Sounds. negative: Respiratory Distress, Accessory Muscle Use Cardiovascular: positive: Regular Rhythm, Regular Rate. negative: Murmur Gastrointestinal/Abdominal: positive: Soft. negative: Tenderness Musculoskeletal: positive: Vertebral Tenderness (bilateral paraspinous at L3-S1) . negative: CVA Tenderness, Decreased Range of Motion Extremity: positive: Normal Capillary Refill, Normal Inspection, Normal Range of Motion. negative: Tender Integumentary: positive: Normal Color, Warm, Moist Neurologic: positive: Normal Mood/Affect, Motor Strength 5/5 (ambulatory but with slow gait) Moderate Sedation - Procedure Monitoring Vital Signs: Procedure Monitoring Vital Signs Temperature 98.2 F 01/06/19 14:05 Pulse Rate 111 H 01/06/19 14:05 Respiratory Rate 16 01/06/19 14:05 Blood Pressure 142/91 01/06/19 14:05 O2 Sat by Pulse Oximetry (%) 98 01/06/19 14:05 ED Treatment Course - LABORATORY CBC & Chemistry Diagram: 01/06/19 15:38 01/06/19 15:38 - RADIOLOGY Radiology Studies Ordered: Category Date Time Status LUMBAR SPINE CT W/O CONTRAST [CT] Stat CT Scan 01/06/19 15:00 Ordered Medical Decision Making - Medical Decision Making 01/06/19 15:29 Complaint low back pain despite receiving epidural 5 days ago. Patient now stating the pain is causing her difficulty to make it to the bathroom in a timely manner and intermittently urinating on herself. Otherwise patient denies urinary incontinence or bowel incontinence. Patient denies numbness to lower extremity. Patient denies abdominal pain or saddle anesthesia. Patient on exam with paraspinous tenderness Plan. Patient ordered for septic workup including consultation to ID and vascular surgeon. Patient ordered for vancomycin and Zosyn Holt lower extremity CT as per ID request *DC/Admit/Observation/Transfer Diagnosis at time of Disposition: Lumbar back pain, Intractable back pain - Discharge Dispostion Disposition: HOME Condition at time of disposition: Fair - Referrals - Patient Instructions - Post Discharge Activity
[2019-01-06 15:51] LABS: BASO % 0.5 % (0-2.0); EOS % 1.8 % (0-4.5); HEMATOCRIT 42.5 % (32.4-45.2); LYMPH % 33.6 % (8-40); MCH 32.2 pg (25.7-33.7); MCHC 35.2 g/dl (32.0-36.0); MEAN CELL VOLUME 91.4 fl (80-96); MEAN PLT VOLUME 8.2 fl (7.5-11.1); MONO % 9.3 % (3.8-10.2); NEUT % 54.8 % (42.8-82.8); PLATELET COUNT 247 K/MM3 (134-434); RBC 4.65 M/mm3 (3.60-5.2); RDW 13.3 % (11.6-15.6); WHITE BLOOD COUNT 11.8 K/mm3 (4.0-10.0)
[2019-01-06] MEDS ORDERED: morphine SULFATE 4 MG/ML VIAL ONE ×2 (15:59→20:14)
[2019-01-06 16:20] LABS: ALBUMIN 3.7 g/dl (3.4-5.0); ALK PHOS 163 U/L (45-117); ANION GAP 8 MMOL/L (8-16); BLOOD UREA NITROGEN 18 mg/dL (7-18); CHLORIDE 104 mmol/L (98-107); CO2 24 mmol/L (21-32); CREATININE 0.8 mg/dL (0.55-1.3); GLUCOSE,RANDOM 98 mg/dL (74-106); SGOT/AST 20 U/L (15-37); SGPT/ALT 32 U/L (13-61); SODIUM 136 mmol/L (136-145); TOT PROT 7.4 g/dl (6.4-8.2)
[2019-01-06 16:20] LABS: URINE APPEARANCE CLEAR; URINE BILIRUBIN NEGATIVE (<2.0 mg/dL); URINE COLOR YELLOW; URINE GLUCOSE (UA) NEGATIVE (NEGATIVE); URINE KETONE TRACE (NEGATIVE); URINE LEUK ESTERASE NEGATIVE (NEGATIVE); URINE NITRITE NEGATIVE (NEGATIVE); URINE PROTEIN NEGATIVE (NEGATIVE); URINE UROBILINOGEN NEGATIVE mg/dL (0.2-1.0)
[2019-01-06 16:22] LABS: HCG,QUALITATIVE URINE Negative
[2019-01-06] MEDS ORDERED: morphine CARPU-JECT 4 MG/1 ML DISP.SYRIN IVPUSH ONE (20:02)
--- NOTE | 2019-01-06 20:09 | PDOC ---
*Physical Exam - Vital Signs Last Vital Signs Temp Pulse Resp BP Pulse Ox 98.2 F 111 H 16 142/91 98 01/06/19 14:05 01/06/19 14:05 01/06/19 14:05 01/06/19 14:05 01/06/19 14:05 - Physical Exam General Appearance: Yes: Appropriately Dressed Female Pelvic Exam: positive: other (no saddle anesthesia. ) ED Treatment Course - LABORATORY CBC & Chemistry Diagram: 01/06/19 15:38 01/06/19 15:38 - ADDITIONAL ORDERS Additional order review: Laboratory Results 01/06/19 01/06/19 16:08 15:38 Sodium 136 Potassium 4.0 Chloride 104 Carbon Dioxide 24 Anion Gap 8 BUN 18 Creatinine 0.8 Creat Clearance w eGFR 81.63 Random Glucose 98 Calcium 9.0 Total Bilirubin 1.0 AST 20 ALT 32 Alkaline Phosphatase 163 H Total Protein 7.4 Albumin 3.7 Urine Color Yellow Urine Appearance Clear Urine pH 6.0 Ur Specific Krum 1.027 Urine Protein Negative Urine Glucose (UA) Negative Urine Ketones Trace H Urine Blood Negative Urine Nitrite Negative Urine Bilirubin Negative Urine Urobilinogen Negative Ur Leukocyte Esterase Negative Urine HCG, Qual Negative 01/06/19 15:38 RBC 4.65 MCV 91.4 MCHC 35.2 RDW 13.3 MPV 8.2 Neutrophils % 54.8 Lymphocytes % 33.6 Monocytes % 9.3 Eosinophils % 1.8 Basophils % 0.5 - Medications Given in the ED: ED Medications Discontinued Medications Generic Name Dose Route Start Last Admin Trade Name Freq PRN Reason Stop Dose Admin Morphine Sulfate 4 mg 01/06/19 15:00 01/06/19 16:10 Morphine Injection - IVPUSH 01/06/19 15:01 4 mg ONCE ONE Administration Medical Decision Making - Medical Decision Making 01/06/19 20:03 patient reports inability to control urine and numbness to left lower extremity CT no acute findings recommend MRI . Lumbar MRI pending. 01/06/192099 patient signed out to Dr. Ugarte for Obs stay. patient is pending MRI results. *DC/Admit/Observation/Transfer Diagnosis at time of Disposition: Lumbar back pain, Intractable back pain - Referrals - Patient Instructions - Post Discharge Activity
[2019-01-06] MEDS ORDERED: SODIUM CHLORIDE 1,000 ML IV SCH (20:15)
[2019-01-06] MEDS ORDERED: ACETAMINOPHEN 1000 MG/100 ML VIAL (NON FORMULARY) IVPB ONE (20:41)
[2019-01-06] MEDS ORDERED: LIDOCAINE 5% TOPICAL PATCH TP ONE (20:52)
[2019-01-06] MEDS ORDERED: LIDOCAINE PATCH REMOVAL MC SCH (22:00)
[2019-01-06] MEDS ORDERED: ACETAMINOPHEN INJECTION 100 ML IVPB ONE (23:00)
[2019-01-06] MEDS ORDERED: CYCLOBENZAPRINE HCL 10 MG TABLET (FP) ONE (23:59)
[2019-01-07] MEDS ORDERED: LIDOCAINE 5% TOPICAL PATCH ONE
[2019-01-07] MEDS: INSULIN SLIDING SCALE (NOVOLOG) 1 VIAL SQ SCH ×4 (00:23→17:07)
[2019-01-07] MEDS: CYCLOBENZAPRINE HCL 10 MG TABLET (FP) PO SCH ×3 (00:23→15:21)
[2019-01-07 03:54] VITALS: BMI 44.4
[2019-01-07] MEDS ORDERED: oxyCODONE HCL 5 MG TABLET PO ONE (04:05)
[2019-01-07] MEDS ORDERED: GLIMEPIRIDE 2 MG TABLET (FP) PO SCH (07:00)
[2019-01-07] MEDS ORDERED: diazePAM 5 MG TABLET PO PRN (09:36)
--- NOTE | 2019-01-07 09:37 | HP ---
Admitting History and Physical - Primary Care Physician PCP: Alma Guerrier - Admission Chief Complaint: back pain History of Present Illness: back pain since late november after doing laundry-she felt a pop and since then has had severe pain. came to er was admitted overnight on 12.25.18. was recommended to f/up as outpt for pain mgmnt. received epidural injection 5 days ago. since then report subjecting worsening of the pain, radiating to both legs and weakness. unable to hold her urine if she needs to void. History Source: Patient Limitations to Obtaining History: No Limitations - Past Medical History Cardiovascular: Yes: HTN Endocrine: Yes: Diabetes Mellitus (type 2) - Past Surgical History Past Surgical History: Yes: Cholecystectomy, Tonsillectomy - Smoking History Smoking history: Never smoked Have you smoked in the past 12 months: No Aproximately how many cigarettes per day: 0 - Alcohol/Substance Use Hx Alcohol Use: No - Social History ADL: Independent History of Recent Travel: No Home Medications - Allergies Allergies/Adverse Reactions: Allergies Allergy/AdvReac Type Severity Reaction Status Date / Time aspirin Allergy Verified 01/06/19 14:05 azithromycin Allergy Rash Verified 01/06/19 14:05 ciprofloxacin [From Cipro] Allergy Vomiting Verified 01/06/19 14:05 ciprofloxacin HCl Allergy Rash Verified 01/06/19 14:05 [From Cipro] fluconazole [From Diflucan] Allergy Itching Verified 01/06/19 14:05 guaifenesin Allergy Rash Verified 01/06/19 14:05 pesticide Allergy Verified 01/06/19 14:05 Sulfa (Sulfonamide Allergy Verified 01/06/19 14:05 Antibiotics) UNKNOWN FOOD-ALLERGIC Allergy Severe Difficulty Uncoded 01/06/19 14:05 ANAPHYLACTIC Breathing - Home Medications Home Medications: Ambulatory Orders Amlodipine Besylate 5 mg PO DAILY 10/10/18 Lisinopril 10 mg PO DAILY 10/10/18 Glimepiride 2 mg PO DAILY 12/23/18 Review of Systems - Review of Systems Constitutional: reports: Weakness. denies: Fever, Lethargy, Loss of Appetite Eyes: reports: No Symptoms HENT: reports: No Symptoms Neck: reports: No Symptoms Cardiovascular: reports: No Symptoms Respiratory: reports: No Symptoms Gastrointestinal: reports: No Symptoms Genitourinary: reports: Incontinence. denies: Frequency Musculoskeletal: reports: Back Pain Psychiatric: reports: No Symptoms Pain Intensity: 10 Physical Examination Vital Signs: Vital Signs Temperature 97.1 F L 01/07/19 08:30 Pulse Rate 99 H 01/07/19 08:30 Respiratory Rate 20 01/07/19 08:30 Blood Pressure 144/70 01/07/19 08:30 O2 Sat by Pulse Oximetry (%) 99 01/07/19 04:37 Constitutional: Yes: Anxious, Moderate Distress, Obese Eyes: Yes: Conjunctiva Clear HENT: Yes: Atraumatic, Normocephalic Neck: Yes: Trachea Midline Cardiovascular: Yes: Regular Rate and Rhythm Respiratory: Yes: CTA Bilaterally Gastrointestinal: Yes: Normal Bowel Sounds, Soft, Other (back pain while palpating abdomen) Musculoskeletal: Yes: Back Pain. No: Joint Stiffness, Joint Swelling, Muscle Pain Edema: No Peripheral Pulses WNL: Yes Neurological: Yes: Alert, Oriented (absent patellar reflexes ble to move both legs minimally against gravity due to back pain) Psychiatric: Yes: WNL Labs: CBC, BMP 01/06/19 15:38 01/06/19 15:38 Imaging - Results MRI: Report Reviewed (L3-4 4mm disc extrusion) Problem List - Problems (1) Diabetes mellitus Code(s): E11.9 - TYPE 2 DIABETES MELLITUS WITHOUT COMPLICATIONS Qualifiers: Diabetes mellitus type: type 2 Diabetes mellitus penitentiary insulin use: without terminal clerk use Diabetes mellitus complication status: without complication Qualified Code(s): E11.9 - Type 2 diabetes mellitus without complications (2) HTN (hypertension) Code(s): I10 - ESSENTIAL (PRIMARY) HYPERTENSION Qualifiers: Hypertension type: essential hypertension Qualified Code(s): I10 - Essential (primary) hypertension (3) Obesity Code(s): E66.9 - OBESITY, UNSPECIFIED Qualifiers: Obesity type: due to excess calories (4) Intractable back pain Code(s): M54.9 - DORSALGIA, UNSPECIFIED (5) Lumbar back pain Code(s): M54.5 - LOW BACK PAIN Assessment/Plan muscle relaxant pain medication physical therpay awaiting neurosurgical/pain mgmnt consult mri overall not bad add diazepam prn
[2019-01-07] MEDS ORDERED: LISINOPRIL 10 MG TABLET (FP) PO SCH (10:00)
[2019-01-07] MEDS ORDERED: amLODIPine BESYLATE 5 MG TABLET (FP) PO SCH (10:00)
[2019-01-07] MEDS: oxyCODONE HCL 5 MG TABLET PO PRN ×2 (10:23→16:58)
--- NOTE | 2019-01-07 12:24 | CONSULT ---
Consult - text type - Consultation Consultation Note: NEUROSURGERY CONSULTATION Jagruti Bolton is a 33 year old female who was in her usual state of good health until 3 weeks ago when she suddenly developed sharp low back pain while bending to lift a laundry basket. She had previously been seen at another institution where she was evaluated, but soon discharged. She has been undergoing conservative management and received an Epidural Steroid Injection on Sunday, January 01, [address] Karimi. This did afford her transient relief, as did trigger point injections. Unfortunately, she developed significant progression and came to the [facility] ER for evaluation. She was admitted by Dr. Sharlene Minor who covers for her PCP, Dr. Guerrier. MRI Lumbar shows moderate degenerative changes with L34, L45 and L5S1 disc bulges. 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 There is no pathology which mandates urgent surgical attention, however, there are several pain generators identified which may ultimately be benefitted with surgery if her pain persists at a severe level despite comprehensive conservative management. I will discuss her case with Dr. Karimi and develop a coordinated plan of care. - GI/DVT prophylaxis - Physical Therapy
[2019-01-07 18:39] VITALS: BP 118/77; PULSE 100; TEMP 98.1
== END 2019-01-07 19:20 | disposition home or self-care (01) ==
LOC: JER 13:46 → JERBED 20:42 → J5S 01-07 03:30
PROVIDERS: ADMIT Internal Medicine; ATTEND Internal Medicine
PROC: 3E033NZ Introduction of Analgesics, Hypnotics, Sedatives into Peripheral Vein, Percutaneous Approach (ICD-10-PCS; principal; 2019-01-06)
PROC: 3E0337Z Introduction of Electrolytic and Water Balance Substance into Peripheral Vein, Percutaneous Approach (ICD-10-PCS; 2019-01-06)
DX: M54.5 Low back pain (principal); I10 Essential (primary) hypertension; E11.9 Type 2 diabetes mellitus without complications; E66.9 Obesity, unspecified; Z68.41 Body mass index [BMI] 40.0-44.9, adult
CPT/HCPCS: 36415; 72131-TC; 72148-TC; 80053; 81003; 82962; 84703; 85025; 96374; 96375; 96376; 99285-25; G0378; J0131; J7030